=== PATIENT | male | born 1960 | race Caucasian/White ===

== ENCOUNTER → 2023-03-05 14:37 | Outpatient (CLI) | payer MEDICARE, OTHER, SELFPAY | PROVIDERS: PCP Nurse Practitioner Family; Visit Provider Internal Medicine | DX: G47.30 Sleep apnea, unspecified (principal); R06.83 Snoring; R06.00 Dyspnea, unspecified; I11.9 Hypertensive heart disease without heart failure | CPT/HCPCS: G0399 ==

== ENCOUNTER → 2023-03-12 10:22 | Outpatient (CLI) | payer MEDICARE, OTHER, SELFPAY ==
[2023-03-12 11:40] LABS: Anion Gap 12.2 mEq/L (5-15); Blood Urea Nitrogen 18 mg/dl (9-20); Calcium 9.5 mg/dl (8.4-10.2); Carbon Dioxide 30 mmol/L (22.0-30.0); Chloride 97 mmol/L (98-107); Estimated Glomerular Filt Rate 76 ml/min (>60); GFR (African American) 92 ML/MIN (>60); Glucose 123 mg/dl (74-100); Potassium 4.2 mmoL/L (3.5-5.1); Sodium 135 mmol/L (136-145)
== END ==
PROVIDERS: PCP Nurse Practitioner Family; Visit Provider Nurse Practitioner Family
DX: E78.5 Hyperlipidemia, unspecified (principal); I11.9 Hypertensive heart disease without heart failure; I27.21 Secondary pulmonary arterial hypertension; I73.9 Peripheral vascular disease, unspecified; R60.9 Edema, unspecified
CPT/HCPCS: 36415; 80048

== ENCOUNTER 2023-04-09 21:08 | Observation (INO) | payer MEDICARE, OTHER, SELFPAY ==
[2023-04-09 21:13] VITALS: BP 113/75; PULSE 57; RESP 16; TEMP 36.9; O2SAT 91; BMI 44.3
[2023-04-09 22:01] VITALS: BP 130/68; PULSE 64; RESP 20; O2SAT 95
--- NOTE | 2023-04-09 22:24 | XR_ITS ---
PROCEDURE INFORMATION: Exam: XR Chest Exam date and time: 04/09/2023 10:56 PM Age: 63 years old Clinical indication: Shortness of breath; Additional info: SOA TECHNIQUE: Imaging protocol: Radiologic exam of the chest. Views: 1 view. Total images: 2 COMPARISON: No relevant prior studies available. FINDINGS: Tubes, catheters and devices: EKG leads are present. Lungs: Mild bibasilar atelectasis versus infiltrate. No pulmonary vascular congestion or interstitial edema. Pleural spaces: Unremarkable. No pleural effusion. No pneumothorax. Heart/Mediastinum: Unremarkable. No cardiomegaly. No mediastinal widening or hilar enlargement. Bones/joints: Mild degenerative changes bilateral glenohumeral joints. IMPRESSION: Mild bibasilar atelectasis versus infiltrate.
[2023-04-09 22:31] VITALS: BP 125/57; PULSE 60; RESP 16; O2SAT 95
[2023-04-09 22:32] LABS: Basophils # 0.1 K/mm3 (0-0.2); Basophils % 0.5 % (0.1-2.0); Chloride 96 mmol/L (98-107); Eosinophils # 0.4 K/mm3 (0.0-0.4); Eosinophils % 3.6 % (0.1-12.0); Hematocrit 51.1 % (42.0-52.0); Hemoglobin 15.7 g/dL (14.1-18.0); Lymphocytes # 1.6 K/mm3 (0.7-4.5); Lymphocytes % 13.4 % (10-50); Mean Corpuscular HGB Conc 30.7 g/dL (31.8-35.4); Mean Corpuscular Hemoglobin 31.1 pg (27.0-31.2); Mean Corpuscular Volume 101.2 fl (80-94); Mean Platelet Volume 7.6 fl (7.4-10.4); Monocytes # 0.8 K/mm3 (0.1-1.0); Neutrophils # 8.8 K/mm3 (1.8-7.8); Neutrophils % 75.6 % (37.0-80.0); Platelet Count 234 K/mm3 (142-424); Red Blood Count 5.05 M/mm3 (4.60-6.20); Red Cell Distribution Width 13.6 % (11.5-17.5); Sodium 135 mmol/L (136-145); White Blood Count 11.7 K/mm3 (4.8-10.8)
[2023-04-09 22:33] LABS: Potassium 4.3 mmoL/L (3.5-5.1)
[2023-04-09 22:35] LABS: Alanine Aminotransferase 31 U/L (12-78); Albumin Level 3.7 g/dl (3.5-5.0); Albumin/Globulin Ratio 1.3 (1.1-1.8); Alkaline Phosphatase 53 U/L (38-126); Anion Gap 12.3 mEq/L (5-15); Aspartate Amino Transferase 29 U/L (17-59); Bilirubin,Total 0.2 mg/dl (0.2-1.3); Blood Urea Nitrogen 28 mg/dl (9-20); Calcium 9.3 mg/dl (8.4-10.2); Carbon Dioxide 31 mmol/L (22.0-30.0); Creatinine Clearance Estimated 64 mL/min (50-200); Estimated Glomerular Filt Rate 61 ml/min (>60); GFR (African American) 74 ML/MIN (>60); Globulin 2.8 g/dL (1.3-3.2); Glucose 152 mg/dl (74-100); Total Protein,Serum 6.5 g/dl (6.3-8.2)
[2023-04-09 22:51] LABS: Troponin I < 0.01 ng/ml (0.00-0.034)
[2023-04-09 23:01] VITALS: BP 121/55; PULSE 60; RESP 14; O2SAT 94
[2023-04-09 23:31] VITALS: BP 137/76; PULSE 61; RESP 16; O2SAT 95
--- NOTE | 2023-04-09 23:45 | ECG_ITS ---
APPROVED REPORT Exam: Resting ECG HR:57 bpm ECG Measurements Heart Rate 57 AXES HI 181 P 57 QRSd 101 QRS 57 QT 395 T 65 QTc 389 Conclusion SINUS BRADYCARDIA LOW QRS VOLTAGE IN PRECORDIAL LEADS [QRS DEFLECTION < 1.0 mV IN CHEST LEADS] NONSPECIFIC T-WAVE ABNORMALITY BORDERLINE ECG UNCONFIRMED REPORT Electronically signed by : Rishi English MD 04/11/2023 17:21:17
--- NOTE | 2023-04-09 23:47 | HMH.EDGENADL ---
Discharge Plan Disposition Patient Disposition: Admitted Condition: Fair Chief Complaint: Shortness of Breath/Dyspnea Clinical Impressions Clinical Impression: Peripheral edema, Shortness of breath Discharge ED Provider: Dennis Werner General Adult HPI General Chief complaint: Shortness of Breath/Dyspnea Stated complaint: sent by Elida, to be checked Time Seen by Provider: 04/09/23 23:37 Mode of Arrival: Wheelchair Source of Information: Patient and Parent(s) Limitations: No Limitations Description of Symptoms (Recalled from ER Triage Doc. by RN): patient to ED via wheelchair for SOA and +[address] Marrero contacted Dr. Rivera who would like patient to be admitted for cardiac symptoms. Patient denies chest pain at present. SOA constant x 3weeks. Patient is chronic smoker of 1/2 pack day. History of Present Illness HPI narrative: This 63-year-old male with a history of paranoid schizophrenia, coronary arterial sclerosis, DESMOND, obesity, emphysema presents to the emergency department with shortness of breath and worsening peripheral swelling. Patient states he takes Bumex daily. Patient and his family at bedside report that he was supposed to be admitted a couple weeks ago but decided not to be. His symptoms have worsened and he presented today for evaluation and admission per Dr. Marrero. Patient also has abdominal pain that he states is chronically intermittent. Related Data Home Medications Medication Instructions Recorded Confirmed albuterol sulfate 90 mcg/actuation 2 puff inhalation Q4H Emphysema 09/24/17 04/09/23 aerosol inhaler (Ventolin HFA) fluticasone 500 mcg-salmeterol 50 1 inh inhalation BID Emphysema 09/24/17 04/09/23 mcg/dose blistr powdr for inhalation (Advair Diskus) docusate sodium 100 mg capsule 100 mg PO DAILY stool softner 11/07/20 04/09/23 esomeprazole magnesium 40 mg 40 mg PO BID GERD 11/07/20 04/09/23 capsule,delayed release (Nexium) omega-3 acid ethyl esters 1 gram 2 cap PO BID Supplement 11/07/20 04/09/23 capsule risperidone microspheres 50 mg/2 50 mg IM Q14D antipsychotic 11/14/21 04/09/23 mL intramuscular susp,ext release (Risperdal Consta) melatonin 5 mg tablet 5 mg PO HS sleep 09/11/22 04/09/23 hydroxyzine pamoate 50 mg capsule 50 mg PO BID Anxiety 03/05/23 04/09/23 olanzapine 10 mg tablet 10 mg PO HS schizophrenia 03/05/23 04/09/23 benztropine 1 mg tablet 1 mg PO DAILY dystonia 03/14/23 04/09/23 divalproex 500 mg tablet,delayed 500 mg PO BID seizure 03/14/23 04/09/23 release prazosin 1 mg capsule 1 mg PO HS HTN 03/14/23 04/09/23 tamsulosin 0.4 mg capsule 0.4 mg PO HS BPH 03/14/23 04/09/23 trazodone 100 mg tablet 150 mg PO HS sleep 03/14/23 04/09/23 bumetanide 2 mg tablet 4 mg PO DAILY diuretic 04/09/23 04/09/23 carvedilol 6.25 mg tablet 6.25 mg PO BID HTN 04/09/23 04/09/23 clopidogrel 75 mg tablet 75 mg PO DAILY Blood Thinner 04/09/23 04/09/23 spironolactone 50 mg tablet 50 mg PO DAILY diuretic 04/09/23 04/09/23 Allergies Allergy/AdvReac Type Severity Reaction Status Date / Time gabapentin Allergy Severe unknown Verified 03/27/23 11:03 bupropion [From Wellbutrin] Allergy Mild Verified 03/27/23 11:03 duloxetine [From Cymbalta] Allergy Mild Verified 03/27/23 11:03 gemfibrozil [From Lopid] Allergy Mild Verified 03/27/23 11:03 quetiapine [From Seroquel] Allergy Mild Verified 03/27/23 11:03 [facility] Disclaimer: The information contained in this section may have been updated after the patient was seen, as this information can be updated by other users. Medical History Anxiety Coronary stent patent Dyspnea Edema Emphysema, unspecified Hyperlipemia DESMOND (obstructive sleep apnea) Schizophrenia Snoring Technically limited and inconclusive home sleep study due to a total recording time of only 0.72 hours is suggestive of severe DESMOND, AHI 61, RDI 68. Unfortunately there is insufficient study time to make a
[2023-04-10] VITALS (16 sets, daily range): BP systolic 118–147; BP diastolic 49–82; PULSE 48–92; RESP 14–22; TEMP 36.5–37; O2SAT 91–97; BMI 44.6
--- NOTE | 2023-04-10 | CT_ITS ---
PROCEDURE INFORMATION: Exam: CT Abdomen And Pelvis With Contrast Exam date and time: 04/10/2023 12:15 AM Age: 63 years old Clinical indication: Abdominal pain; Generalized; Additional info: Abd pain and diffuse tenderness TECHNIQUE: Imaging protocol: Computed tomography of the abdomen and pelvis with contrast. Total images: 366 Radiation optimization: All CT scans at this facility use at least one of these dose optimization techniques: automated exposure control; mA and/or kV adjustment per patient size (includes targeted exams where dose is matched to clinical indication); or iterative reconstruction. Contrast material: ISOVUE; Contrast volume: 75 ml; Contrast route: IV; REPORTING DATA: Count of CT and Cardiac NM exams in prior 12 months: This patient has received 0 known CTs and 0 known cardiac nuclear medicine studies in the 12 months prior to the current study. COMPARISON: CR XR CHEST PORTABLE 04/09/2023 10:56 PM FINDINGS: Lungs: Bilateral lower lobe atelectasis versus infiltrate including small volume consolidation in the right lower lobe. Pleural spaces: Trace bilateral pleural effusions. Heart: Normal heart size. Coronary arteries: Coronary artery calcifications. Liver: Hepatomegaly at 22 cm. Decreased liver attenuation from artifact, phase of contrast, or steatosis. No liver mass. Gallbladder and bile ducts: Status post cholecystectomy. No bile duct dilatation. Pancreas: Normal. No ductal dilation. Spleen: Normal. No splenomegaly. Adrenal glands: Minor right adrenal thickening. 2.4 cm indeterminate left adrenal nodule. Kidneys and ureters: 5.5 cm right renal peripelvic lesion with attenuation higher than simple fluid. Suspect complex cyst. Recommend follow-up nonemergent renal ultrasound. 12 mm enhancing or high density partially exophytic lower pole left renal cortical lesion. Additional 10 mm lower pole left renal cortical hypodensity. No nephrolithiasis or hydronephrosis. Stomach and bowel: Unremarkable stomach and duodenum. No ileus or bowel obstruction. Small bowel appears within normal limits. Minor diverticulosis of the distal ileum. Moderate diverticulosis of the descending and sigmoid colon without acute diverticulitis. Collapsed rectum. Appendix: The appendix is not visualized and may be surgically absent. Intraperitoneal space: Unremarkable. No free air. No significant fluid collection. Vasculature: Status post endovascular stent repair of the abdominal aorta. [place] abdominal aortic aneurysm measuring 4.2 cm. No contrast extravasation. Stent extending into the bilateral common iliac arteries. Pelvic phleboliths. Lymph nodes: Unremarkable. No enlarged lymph nodes. Urinary bladder: Unremarkable as visualized. Reproductive: Nonenlarged prostate. Bones/joints: No acute osseous abnormality. Mild degenerative changes thoracolumbar spine. No concerning bone lesions. Soft tissues: Fat containing left inguinal hernia. IMPRESSION: 1. Bibasilar atelectasis versus infiltrate, including small volume right lower lobe consolidations concerning for pneumonia. 2. Indeterminate bilateral renal cortical lesions, not consistent with simple cysts. Recommend follow-up nonemergent dedicated renal CT or MRI. 3. Status post endovascular stent repair of abdominal aortic aneurysm. Residual aneurysm measuring 4.2 cm. No contrast extravasation. 4. Indeterminate 2.4 cm left adrenal nodule. This can be further evaluated time of dedicated renal imaging. 5. Moderate colonic diverticulosis without acute diverticulitis. 6. Additional chronic and incidental findings. COMMENTS: Consistent with the [employer]'s Incidental Findings Committee white paper (J Am Amaya Radiol 2018): Any incidental renal lesion
[2023-04-10 00:07] LABS: NT Pro Brain Natriuretic Pep. 79.2 pg/mL (0-125)
--- NOTE | 2023-04-10 00:54 | EXP.HP ---
History of Present Illness *Admission Date: 04/10/23 *Reason for visit:: SOB *History of present illness: This 63-year-old male with a history of paranoid schizophrenia, coronary arterial sclerosis, AAA s/p repair, HTN, DESMOND, obesity, emphysema presents to the emergency department with shortness of breath and worsening peripheral swelling. Patient and his family at bedside stated that after followed up with cardiology recommendation for hospital evaluation was made, but decided not to be. His symptoms have worsened and he presented today for evaluation and admission per Dr. Marrero. Patient also has abdominal pain that he states is chronically intermittent. Admitted for further work up. [facility] Disclaimer: The information contained in this section may have been updated after the patient was seen, as this information can be updated by other users. Medical History Anxiety Coronary stent patent Dyspnea Edema Emphysema, unspecified Hyperlipemia DESMOND (obstructive sleep apnea) Schizophrenia Snoring Technically limited and inconclusive home sleep study due to a total recording time of only 0.72 hours is suggestive of severe DESMOND, AHI 61, RDI 68. Unfortunately there is insufficient study time to make an accurate diagnosis and further evaluation is needed. Surgical History History of cardiac cath History of heart artery stent Hx of appendectomy Family History Other Cancer Diabetes Heart attack Hypertension Stroke Social History (Updated 04/10/23 @ 02:13 by Daphne Nagel RN) Smoking Status: Current every day smoker tobacco type: cigarettes packs per day: 1 years smoked: 44 alcohol intake: never substance use type: denies use current occupational status: disabled Travel in the last 8 weeks: None household members: none housing: apartment Review of Systems Review of Systems Review of systems:: pertinent systems reviewed and negative unless documented below Constitutional Constitutional: Denies headache(s) and Denies weakness ENT Ears, Nose, Mouth, and Throat: Denies dizziness and Denies headache(s) *Musculoskeletal Musculoskeletal: Denies numbness and Denies tingling *Neurologic Neurologic: Denies dizziness, Denies headache(s), Denies numbness, Denies tingling and Denies weakness Meds Home Medications and Allergies Home Medications Medication Instructions Recorded Confirmed Type albuterol sulfate 90 mcg/actuation 2 puff inhalation Q4H Emphysema 09/24/17 04/10/23 History aerosol inhaler (Ventolin HFA) docusate sodium 100 mg capsule 200 mg PO HS stool softner 11/07/20 04/10/23 History esomeprazole magnesium 40 mg 40 mg PO BID GERD 11/07/20 04/10/23 History capsule,delayed release (Nexium) omega-3 acid ethyl esters 1 gram 2 cap PO BID Supplement 11/07/20 04/10/23 History capsule risperidone microspheres 50 mg/2 50 mg IM Q14D antipsychotic 11/14/21 04/10/23 History mL intramuscular susp,ext release (Risperdal Consta) melatonin 5 mg tablet 5 mg PO HS sleep 09/11/22 04/10/23 History hydroxyzine pamoate 50 mg capsule 50 mg PO BID Anxiety 03/05/23 04/10/23 History benztropine 1 mg tablet 1 mg PO DAILY dystonia 03/14/23 04/10/23 History divalproex 500 mg tablet,delayed 500 mg PO BID seizure 03/14/23 04/10/23 History release prazosin 1 mg capsule 1 mg PO HS HTN 03/14/23 04/10/23 History tamsulosin 0.4 mg capsule 0.4 mg PO HS BPH 03/14/23 04/10/23 History trazodone 100 mg tablet 300 mg PO HS sleep 03/14/23 04/10/23 History carvedilol 6.25 mg tablet 6.25 mg PO BID HTN 04/09/23 04/10/23 History clopidogrel 75 mg tablet 75 mg PO DAILY Blood Thinner 04/09/23 04/10/23 History spironolactone 50 mg tablet 50 mg PO DAILY diuretic 04/09/23 04/10/23 History New Prescriptions to Start Prescriptions: Allergies Allergy/AdvReac Typ
--- NOTE | 2023-04-10 01:27 | PC.NURSE ---
report called to SANDY Domínguez. Patient will be going to room 200 on 2nd floor
--- NOTE | 2023-04-10 01:37 | PC.NURSE ---
2nd fl staff here to transfer pt to Med/Surg. Also attempting to collect troponin
--- NOTE | 2023-04-10 01:46 | PC.NURSE ---
pt to floor via stretcher [id number]
[2023-04-10 02:05] LABS: Troponin I < 0.01 ng/ml (0.00-0.034)
[2023-04-10 04:55] LABS: Alanine Aminotransferase 26 U/L (12-78); Albumin Level 3.3 g/dl (3.5-5.0); Albumin/Globulin Ratio 1.3 (1.1-1.8); Alkaline Phosphatase 53 U/L (38-126); Anion Gap 12.1 mEq/L (5-15); Aspartate Amino Transferase 24 U/L (17-59); Bilirubin,Total 0.2 mg/dl (0.2-1.3); Blood Urea Nitrogen 24 mg/dl (9-20); Calcium 9.2 mg/dl (8.4-10.2); Carbon Dioxide 31 mmol/L (22.0-30.0); Chloride 97 mmol/L (98-107); Creatinine Clearance Estimated 70 mL/min (50-200); Estimated Glomerular Filt Rate 68 ml/min (>60); GFR (African American) 82 ML/MIN (>60); Globulin 2.6 g/dL (1.3-3.2); Glucose 110 mg/dl (74-100); Magnesium 1.6 mg/dl (1.6-2.3); Potassium 4.1 mmoL/L (3.5-5.1); Sodium 136 mmol/L (136-145); Total Protein,Serum 5.9 g/dl (6.3-8.2)
[2023-04-10 04:56] LABS: Basophils % 0.4 % (0.1-2.0); Eosinophils # 0.4 K/mm3 (0.0-0.4); Eosinophils % 4.2 % (0.1-12.0); Hematocrit 45.4 % (42.0-52.0); Lymphocytes # 1.9 K/mm3 (0.7-4.5); Lymphocytes % 22.4 % (10-50); Mean Corpuscular Hemoglobin 31.5 pg (27.0-31.2); Mean Corpuscular Volume 101.6 fl (80-94); Mean Platelet Volume 6.7 fl (7.4-10.4); Monocytes # 0.6 K/mm3 (0.1-1.0); Neutrophils # 5.6 K/mm3 (1.8-7.8); Platelet Count 207 K/mm3 (142-424); Red Blood Count 4.47 M/mm3 (4.60-6.20); Red Cell Distribution Width 13.4 % (11.5-17.5); White Blood Count 8.5 K/mm3 (4.8-10.8)
[2023-04-10 05:17] LABS: Troponin I < 0.01 ng/ml (0.00-0.034)
--- NOTE | 2023-04-10 06:02 | PC.NURSE ---
Arrived on floor at 01:46. Patient has been bradycardic since arrival to the floor. Has been NPO since arrival to floor. Patient does have startled reflex when awakened; may become combative until oriented. Patient has been had good urine output prior to dose of Lasix 80mg given this AM. Patient has rested in bed, mother is at bedside. Patient LCTA, denies SOA; is able to stand and pivots his feet when instructed but does not ambulate. Call light in reach and bed is at lowest level.
--- NOTE | 2023-04-10 06:50 | EXP.PN ---
Subjective *Date: 04/10/23 *Time: 10:22 Interval history: The patient is seen and examined today. He reports some improvement in his dyspnea overnight. Nursing staff report that he remains afebrile with stable vital signs and saturating appropriately on room air. His most recent echo from 2020 identifies an RVSP of 50 mmHg with an EF of 60%. He routinely follows with cardiology. His morning labs identify magnesium 1.6 with normal electrolytes and creatinine. His CBC identifies a normal white blood cell count stable hemoglobin normal platelets. Exam Data for Last 24 hours Vital signs and Labs for Last 24 Hours: Temp Pulse Resp BP Pulse Ox O2 Del Method 97.7 F 57 L 22 130/56 L 93 L Room Air 04/10/23 04:00 04/10/23 04:00 04/10/23 04:00 04/10/23 04:00 04/10/23 04:00 04/10/23 06:47 Laboratory Results - last 24 hr 04/09/23 21:26: WBC 11.7 H, RBC 5.05, Hgb 15.7, Hct 51.1, MCV 101.2 H, MCH 31.1, MCHC 30.7 L, RDW 13.6, Plt Count 234, MPV 7.6, Neut % (Auto) 75.6, Lymph % (Auto) 13.4, Garvin % (Auto) 7.0, Eos % (Auto) 3.6, Baso % (Auto) 0.5, Neut # (Auto) 8.8 H, Lymph # (Auto) 1.6, Garvin # (Auto) 0.8, Eos # (Auto) 0.4, Baso # (Auto) 0.1, Sodium 135 L, Potassium 4.3, Chloride 96 L, Carbon Dioxide 31 H, Anion Gap 12.3, BUN 28 H, Creatinine 1.20, Estimated Creat Clear 64, Estimated GFR 61, Est GFR ( Amer) 74, Glucose 152 H, Calcium 9.3, Total Bilirubin 0.2, AST 29, ALT 31, Alkaline Phosphatase 53, Troponin I < 0.01, NT-Pro-B Natriuret Pep 79.2, Total Protein 6.5, Albumin 3.7, Globulin 2.8, Albumin/Globulin Ratio 1.3 04/10/23 01:40: Troponin I < 0.01 04/10/23 04:30: WBC 8.5 D, RBC 4.47 L, Hgb 14.0 L D, Hct 45.4, MCV 101.6 H, MCH 31.5 H, MCHC 31.0 L, RDW 13.4, Plt Count 207, MPV 6.7 L, Neut % (Auto) 66.0, Lymph % (Auto) 22.4, Garvin % (Auto) 7.0, Eos % (Auto) 4.2, Baso % (Auto) 0.4, Neut # (Auto) 5.6, Lymph # (Auto) 1.9, Garvin # (Auto) 0.6, Eos # (Auto) 0.4, Baso # (Auto) 0.0, Sodium 136, Potassium 4.1, Chloride 97 L, Carbon Dioxide 31 H, Anion Gap 12.1, BUN 24 H, Creatinine 1.10, Estimated Creat Clear 70, Estimated GFR 68, Est GFR ( Amer) 82, Glucose 110 H D, Calcium 9.2, Magnesium 1.6, Total Bilirubin 0.2, AST 24, ALT 26, Alkaline Phosphatase 53, Troponin I < 0.01, Total Protein 5.9 L, Albumin 3.3 L D, Globulin 2.6, Albumin/Globulin Ratio 1.3 I & O for Last 24 hours: Intake & Output 04/07/23 04/08/23 04/09/23 04/10/23 23:59 23:59 23:59 23:59 Output Total 1675 / 1675 Balance -1675 / -1675 Weight 136.078 kg 136.8 kg Constitutional Constitutional: no acute distress, morbidly obese, chronically ill appearing and cooperative *Routine HEENT Exam Head: Present normocephalic Eye: Present EOMI and PERRL ENT: Present mucous membranes moist *Routine Respiratory Exam Respiratory: Present rhonchi, normal respiratory effort and symmetric chest movement *Routine Cardiovascular Exam Cardiovascular: Present RRR, Normal S1 and Normal S2 *Routine Abdominal Exam Abdominal: Present soft and normoactive bowel sounds; Absent tenderness *Routine Extremities Exam Extremities: Present edema, full ROM, pulses intact and normal capillary refill *Routine Skin Exam Skin: Present warm; Absent rash *Routine Neurological Exam Neurological: Present alert, oriented X3, moving all extremities, vision grossly intact, hearing grossly intact and normal speech; Absent sensory deficit or motor deficit Routine Psychiatric Exam Psychiatric: Present cooperative Assessment and Plan *Assessment and plan (1) Acute on chronic heart failure with preserved ejection fraction (HFpEF): Status: Acute Category: Medical Code(s): I50.33 - Acute on chronic diastolic (congestive) heart failure (2) DESMOND (obstructive sleep apnea): Status: Acute Category: Medical Code(s): G47.33 - Obstructive sleep apnea (adult) (pediatric) (3) Pulmonary hypertension: Status: Acute Category: Medical Code(s): I27.20 - Pulmon
--- NOTE | 2023-04-10 06:57 | CA_ITS ---
APPROVED REPORT EXAM: Comprehensive 2D, Doppler, and color-flow Echocardiogram Oil Boiler: ALESSANDRO Abreu, RVS Ht: 5 ft 8 in Wt: 300lbs BSA: 2.43 BP: 130/56 mmHg Indications: SOB, heart failure, CAD -coronary stent, DESMOND, Obesity, Smoker, schizophrenia Echo Enhancing Agent Comments: Extremely difficult exam due to patient intolerance to touch-screaming, hyperventillation, & body habitus. Best exam possible 2D Dimensions Aortic Root 3.26 cm M: 3.1 - 3.7 Left Atrium 3.16 cm M: 3.0 - 4.0 LVOT 2.00 cm (M/F) 1.5-2.5 M-Mode Dimensions RVDd 3.79 cm (0.9-2.6) LA Diam 4.11 cm (1.9-4.0) LVDd 4.64 cm (3.5-5.7) Ao Diam 3.82 cm (2.0-3.7) LVDs 3.34 cm (3.5-5.7) IVSd 1.20 cm (0.6-1.1) PWd 1.16 cm (0.6-1.1) EF (Teich) 54.30% EPSs 0.63 cm FS 28.00% EDV (Teich) 99.30 mL ESV (Teich) 45.40 mL LV Diastology E Decel Time 277.00 (160-240 msec) E/A Ratio 0.55 LAT E' 7.80 (<10 cm/sec) LAT A' 12.80 cm/s E/LAT E' Ratio 7.72 (>14) Aortic Valve LVOT Max 84.00 (70-110 cm/s) LVOT VTI 15.68 cm AoV Peak Abelino. 109.00 (50-130 cm/s) AO Peak GR. 4.70 mmHg AO Mean GR. 2.40 (<5 mmHg) AO VTI 20.37 (18-25 cm) JONATHAN (VTI) 2.42 (2.5-4.5 cm2) Mitral Valve MV A Velocity 109.00 (40-130 cm/s) E/A Ratio 0.55 MV Decel. Time 277.00 (160-240 ms) Pulmonary Valve PV Peak Velocity 89.00 (50-150 cm/s) [place] End VMAX 158.00 cm/s Tricuspid Valve TR P. Velocity 218.00 cm/s Left Ventricle The left ventricle is normal size. The left ventricular systolic function is normal. The left ventricular ejection fraction is within the normal range. There is increased LV wall thickness. There is normal LV segmental wall motion. LVEF is 55%. Right Ventricle The right ventricle is mildly dilated. The right ventricular systolic function is normal. There is increased RV wall thickness. Atria The left and right atria are not well visualized. Aortic Valve The aortic valve opens well. There is no aortic valvular stenosis. No aortic regurgitation is present. Mitral Valve The mitral valve is mildly thickened. No evidence of mitral valve stenosis. There is no mitral valve regurgitation noted. Tricuspid Valve The tricuspid valve leaflets are thin and pliable. Trace tricuspid regurgitation. RVSP is 12 mmHg + RA pressure. Pulmonic Valve The pulmonary valve is not well visualized. Great Vessels The aortic root is normal in size. The ascending aorta is normal in size. The IVC is not well visualized. Pericardium Trivial pericardial effusion. Other Information Study Quality: Technically Difficult. Technically limited study due to lung disease. Conclusion This was a technically difficult and technically limited study due to poor accoustic windows. Grossly, normal biventricular systolic function. Mildly dilated RV. No significant valvular stenosis or regurgitation. Trivial pericardial effusion. Electronically signed by : Zakiya Stern MD 04/10/2023 18:47:57
--- NOTE | 2023-04-10 08:17 | HMH.PHAINT1 ---
Pharmacy Intervention Comments: MEDICATION RECONCILIATION COMPLETED ON PATIENT USING EXTERNAL FILL FROM HOSPITAL AND LIST PROVIDED BY PATIENT'S MOTHER. -MADELINE WILSON, CHAZD
--- NOTE | 2023-04-10 14:26 | EXP.CARD.CON ---
History of Present Illness History of Present Illness Consult date: 04/10/23 Requesting physician: Koby Molina Consult reason: shortness of breath Chief complaint: SOA History of present illness: This is a 63-year-old white gentleman who presented to the emergency department complaints of shortness of breath and bilateral lower extremity edema. He has a history of paranoid schizophrenia, coronary artery disease, AAA status postrepair, hypertension, hyperlipidemia and obstructive sleep apnea. The patient states that he has been having progressively worsening shortness of breath and lower extremity edema. His shortness of breath was severe last night he decided to come to the emergency department. He denies any chest pain or pressure. He denies any fever, chills, nausea, vomiting, diarrhea. He does have associated PND and orthopnea. [facility] Disclaimer: The information contained in this section may have been updated after the patient was seen, as this information can be updated by other users. Medical History (Updated 04/10/23 @ 14:31 by Ariana Perez APRN) Acute on chronic heart failure with preserved ejection fraction (HFpEF) Anxiety Coronary artery disease Coronary stent patent Dyspnea Edema Emphysema, unspecified Hyperlipemia Morbid obesity DESMOND (obstructive sleep apnea) Peripheral edema Peripheral vascular disease Pulmonary hypertension Schizophrenia Snoring SOB (shortness of breath) on exertion Tobacco dependence Surgical History History of cardiac cath History of heart artery stent Hx of appendectomy Family History Other Cancer Diabetes Heart attack Hypertension Stroke Social History (Updated 04/10/23 @ 02:13 by Daphne Nagel RN) Smoking Status: Current every day smoker tobacco type: cigarettes packs per day: 1 years smoked: 44 alcohol intake: never substance use type: denies use current occupational status: disabled Travel in the last 8 weeks: None household members: none housing: apartment Review of Systems Review of Systems Review of systems:: pertinent systems reviewed and negative unless documented below Constitutional Constitutional: Reports system reviewed and no additional complaints, except as documented, Reports fatigue, Denies headache(s), Reports lethargy and Denies weakness Eyes Eyes: Reports system reviewed and no additional complaints, except as documented ENT Ears, Nose, Mouth, and Throat: Reports system reviewed and no additional complaints, except as documented, Denies dizziness and Denies headache(s) *Cardiovascular Cardiovascular: Reports system reviewed and no additional complaints, except as documented, Denies chest pain, Reports dyspnea, Reports dyspnea on exertion, Reports leg edema, Reports orthopnea and Reports pedal edema *Respiratory Respiratory: Reports system reviewed and no additional complaints, except as documented, Reports dyspnea and Reports dyspnea on exertion *Gastrointestinal Gastrointestinal: Reports system reviewed and no additional complaints, except as documented and Reports abdominal pain *Genitourinary Genitourinary: Reports system reviewed and no additional complaints, except as documented *Musculoskeletal Musculoskeletal: Reports system reviewed and no additional complaints, except as documented, Denies numbness and Denies tingling Integumentary/Breasts Skin/Breast: Reports system reviewed and no additional complaints, except as documented *Neurologic Neurologic: Denies dizziness, Denies headache(s), Denies numbness, Denies tingling and Denies weakness Psychiatric Psychiatric: Reports system reviewed and no additional complaints, except as documented Endocrine Endocrine: Reports system reviewed and no additional complaints, except as documented and Reports fatigue Hematologic/Lymphatic Hematologic/Lymphatic: Reports system reviewe
--- NOTE | 2023-04-10 16:20 | PC.NURSE ---
pt has rested in bed t/o shift. pt alert and oriented and cooperative with care. pt's mother has been at bedside. pt reports he is feeling better. LS cta at this time. pt has sinus nawaf. pt did receive Bumex this shift with good urine output. pt on 1800 ml fluid restriction cardiac diet. pt has been compliant with fluid restriction. call light w/i reach.
[2023-04-11] VITALS: BP 106/58; PULSE 52; PULSE 70; RESP 19; TEMP 36.9; O2SAT 91
[2023-04-11 04:00] VITALS: BP 130/65; PULSE 56; PULSE 60; RESP 20; TEMP 36.4; O2SAT 91; BMI 42.5
--- NOTE | 2023-04-11 05:33 | PC.NURSE ---
Patient has been able to rest tonight. Patient did sit up in the chair for a couple hours before bed and we transferred to the bedside commode. Did not have a BM. Still has the male purewick on for accurate I&Os. No other issues have been noted
[2023-04-11 06:04] VITALS: PULSE 44; PULSE 53; O2SAT 86
[2023-04-11 06:46] LABS: Basophils # 0.1 K/mm3 (0-0.2); Basophils % 0.6 % (0.1-2.0); Eosinophils # 0.5 K/mm3 (0.0-0.4); Hemoglobin 15.5 g/dL (14.1-18.0); Lymphocytes # 1.7 K/mm3 (0.7-4.5); Lymphocytes % 18.2 % (10-50); Mean Corpuscular HGB Conc 32.2 g/dL (31.8-35.4); Mean Corpuscular Hemoglobin 31.8 pg (27.0-31.2); Mean Corpuscular Volume 98.6 fl (80-94); Mean Platelet Volume 7.8 fl (7.4-10.4); Monocytes # 0.7 K/mm3 (0.1-1.0); Monocytes % 7.9 % (1.7-9.3); Neutrophils # 6.3 K/mm3 (1.8-7.8); Neutrophils % 68.3 % (37.0-80.0); Platelet Count 210 K/mm3 (142-424); Red Blood Count 4.86 M/mm3 (4.60-6.20); Red Cell Distribution Width 13.5 % (11.5-17.5); White Blood Count 9.3 K/mm3 (4.8-10.8)
[2023-04-11 06:53] LABS: Blood Urea Nitrogen 27 mg/dl (9-20); Calcium 9.2 mg/dl (8.4-10.2); Carbon Dioxide 33 mmol/L (22.0-30.0); Chloride 96 mmol/L (98-107); Creatinine Clearance Estimated 67 mL/min (50-200); Estimated Glomerular Filt Rate 68 ml/min (>60); GFR (African American) 82 ML/MIN (>60); Glucose 129 mg/dl (74-100); Magnesium 1.8 mg/dl (1.6-2.3); Sodium 136 mmol/L (136-145)
[2023-04-11 07:02] LABS: NT Pro Brain Natriuretic Pep. 20.1 pg/mL (0-125)
[2023-04-11 07:11] LABS: Procalcitonin 0.057 ng/mL (0.0-2.0)
[2023-04-11 07:15] LABS: Alanine Aminotransferase 24 U/L (12-78); Albumin Level 3.4 g/dl (3.5-5.0); Alkaline Phosphatase 59 U/L (38-126); Aspartate Amino Transferase 18 U/L (17-59); Bilirubin,Direct 0.1 mg/dl (0.0-0.4); Bilirubin,Indirect 0.2 mg/dL (0.0-0.9); Bilirubin,Total 0.3 mg/dl (0.2-1.3); Bilirubin,Unconjugated 0.2 mg/dL (0.0-1.1); Chol/HDL Ratio 8.6 (1-3.5); Cholesterol 240 mg/dl (140-200); HDL Cholesterol 28 mg/dl (40-60); Total Protein,Serum 5.8 g/dl (6.3-8.2); Triglycerides 366 mg/dl (30-150); VLDL Cholesterol 73 mg/dL (0-40)
[2023-04-11 07:27] VITALS: O2SAT 92
--- NOTE | 2023-04-11 07:32 | EXP.DC.SUM ---
General Admission date:: 04/10/23 Discharge date: 04/11/23 HPI HPI HPI: This 63-year-old male with a history of paranoid schizophrenia, coronary arterial sclerosis, AAA s/p repair, HTN, DESMOND, obesity, emphysema presents to the emergency department with shortness of breath and worsening peripheral swelling. Patient and his family at bedside stated that after followed up with cardiology recommendation for hospital evaluation was made, but decided not to be. His symptoms have worsened and he presented today for evaluation and admission per Dr. Marrero. Patient also has abdominal pain that he states is chronically intermittent. Admitted for further work up. 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 He presented to the ED for evaluation of his dyspnea. Problems addressed as follows: Acute on chronic heart failure with preserved ejection fraction Telemetry monitoring Echocardiogram official report pending at discharge Loop diuretic therapy Beta-carol ann therapy ARB therapy Aldosterone antagonist therapy SGLT2 inhibitor therapy Accurate I's and O's Daily weights Trending electrolytes, magnesium and creatinine with stable results Coronary artery disease Peripheral vascular disease Aortic aneurysm with endograft and iliac stents Previous cardiac cath with stent deployment Antiplatelet therapy P2 Y12 inhibitor therapy Statin therapy Beta-carol ann therapy ARB therapy BMI 45/OHS/DESMOND/COPD overlap Pulmonary hypertension Pulse oximetry monitoring Oxygen therapy to maintain appropriate oxygen saturations Currently oxygenating appropriately on room air NIPPV therapy Irene/Idalia inhalation therapy ICS therapy Nutrition education Calorie appropriate diet Complicates all aspects of care Outpatient follow-up for sleep study and current strategies for pulmonary hypertension Right lower lobe pneumonia Chest x-ray reviewed CT reviewed with RLL Pulse oximetry monitoring Currently oxygenating appropriately on room air Inhalation therapy IV Rocephin completed inpatient course P.o. doxycycline Schizophrenia Routine nursing interaction Antipsychotic therapy ECG with QTc 389 MS Tobacco dependence Tobacco cessation education Nicotine replacement therapy The patient identified improvement and inquired about discharge home. Nursing staff identified some bradycardia during his apneic episodes at night. He was counseled to follow through with his planned sleep study and CPAP therapy. We advised to reduce his home beta-carol ann dose by 50%. Cardiology evaluated the patient and plans to continue outpatient follow-up. He will be discharged home to continue care with his outpatient providers. He will be discharged on a 7-day course of doxycycline. I spent 35 minutes in [id number] time with the patient and nursing staff concerning the discharge process. We discussed the admitting diagnoses and hospital course. We discussed identified improvement and the patient's desire to be discharged. We reviewed inpatient studies and imaging. The patient voiced understanding on the importance of follow-up with his primary care provider and specialist(s). The patient plans to be compliant with the medication regimen prescribed and follow-up appointments. He understands that he can return to the emergency department with any sudden changes or concerns. Exam Data for Last 24 hours Vital signs and Labs for Last 24 Hours: Temp Pulse Resp BP Pulse Ox O2 Del Method 97.6 F 44 L 20 130/65 92 L Room Air 04/11/23 04:00 04/11/23 06:04 04/11/23 04:00 04/11/23 04:00 04/11/23 07:27 04/11/23 07:27 Laboratory Results - last 24 hr 04/11/23 06:33: WBC 9.3, RBC 4.86, Hgb 15.5, Hct 48.0, MCV 98.6 H, MCH 31.8 H, MCHC 32.2, RDW 13.5, Plt Count 210, MPV 7.8, Neut % (Auto) 68.3, Lymph % (Auto) 18.2, [place] % (Auto) 7.9, Eos % (Auto) 5.0, Baso % (Auto)
[2023-04-11 08:00] VITALS: BP 103/70; PULSE 60; RESP 24; TEMP 36.5; O2SAT 91
--- NOTE | 2023-04-12 13:37 | CARE MANAGER ---
Called and spoke with patient and his mother to discuss recent discharge. Patient is doing well. Patient aware of scheduled f/u appts.
== END 2023-04-11 08:45 | disposition home or self-care (01) ==
LOC: ER 23:45 → 2ND 04-10 01:59
PROVIDERS: Emergency Medicine; Nurse Practitioner Family; Admitting Provider Family Medicine; Emergency Provider Emergency Medicine; PCP Nurse Practitioner Family; Visit Provider Family Medicine
DX: R06.00 Dyspnea, unspecified (principal); R06.02 Shortness of breath; J18.1 Lobar pneumonia, unspecified organism; R60.9 Edema, unspecified; I27.21 Secondary pulmonary arterial hypertension; E78.2 Mixed hyperlipidemia; F20.9 Schizophrenia, unspecified; G47.33 Obstructive sleep apnea (adult) (pediatric); F41.9 Anxiety disorder, unspecified; I50.33 Acute on chronic diastolic (congestive) heart failure; Z79.899 Other long term (current) drug therapy; I27.20 Pulmonary hypertension, unspecified; I25.10 Atherosclerotic heart disease of native coronary artery without angina pectoris; I73.9 Peripheral vascular disease, unspecified; F17.200 Nicotine dependence, unspecified, uncomplicated; I77.9 Disorder of arteries and arterioles, unspecified; I71.40 Abdominal aortic aneurysm, without rupture, unspecified; I65.23 Occlusion and stenosis of bilateral carotid arteries; E66.01 Morbid (severe) obesity due to excess calories; Z68.41 Body mass index [BMI] 40.0-44.9, adult
CPT/HCPCS: 36415; 71045; 74177; 80048; 80053; 80061; 80076; 83735; 83880; 84145; 84484; 85025; 93005; 93306; 94640; 99285; G0378; J0696; J3475; Q9967

== ENCOUNTER 2023-05-27 13:54 | Inpatient (IN) | payer MEDICARE, MEDICAID, SELFPAY ==
[2023-05-27] VITALS (17 sets, daily range): BP systolic 86–183; BP diastolic 45–118; PULSE 50–108; RESP 16–29; TEMP 36.9; O2SAT 90–98; BMI 47.0; BMI 44.1
--- NOTE | 2023-05-27 12:16 | IR_ITS ---
APPROVED REPORT Patient Location: Outpatient Office Services Associate: IAN Lewis RT (R) PROCEDURES Right heart catheterization Left heart catheterization Left ventriculogram Selective coronary angiogram Drug-eluting stent deployment to the proximal LAD INDICATION Unstable angina, Biventricular congestive heart failure, Pulmonary hypertension, Informed consent was obtained prior to the procedure. COMPLICATIONS None Estimated Blood Loss: Less than 10 ML TECHNIQUE One percent lidocaine was used to anesthetize the right anterior aspect of the right wrist. The right radial artery was accessed via the Seldinger technique and a 6 [place]an hydrophilic sheath was placed in the right radial artery. Following this an arterial cocktail was administered using 5000U heparin, 2.5 mg verapamil, 1mg Lidocaine and 800mcg nitroglycerin into the right radial sheath. 1% lidocaine used anesthetize the right groin the right femoral vein was accessed via the Salinger technique and a 7 [place]an sheath was placed in the right femoral vein. A papa catheter was used to perform left heart catheterization left ventriculogram and selective coronary angiography while a [place]-Angela catheter was used to perform right heart catheterization. Saturations were obtained in the pulmonary artery and right atrium. At the end of the procedure the arterial sheath was removed good hemostasis was achieved using Traclet band. Patient was transferred to the postop holding area in stable condition for venous sheath removal. ANGIOGRAPHIC RESULTS The left main artery Normal The left anterior descending artery Has a proximal 30% stenosis followed by a focal concentric proximal 70% stenosis. The remaining vessel has mid vessel 20 to 30% stenoses The circumflex artery Nondominant large and has a proximal to mid vessel 30% tandem stenoses The right coronary artery Is a dominant vessel and has a stent in the proximal segment which is widely patent with eccentric 30% in-stent restenosis followed by an additional mid vessel 40% stenosis immediately distal to the stent followed by 10% luminal regularities The POWRES ventriculogram reveals Hyperdynamic at 70 to 75% The left ventricular end-diastolic pressure 25 mmHg Right atrial pressure 17 mmHg Pulmonary artery pressure 50/35 mmHg Pulmonary artery occlusion pressure 24 mmHg Hemoglobin 14.5 Right atrial saturation 73% Pulmonary artery saturation 71% Aortic saturation 91% Cardiac output 7.8 L Cardiac index 3.2 IMPRESSION Severe proximal LAD disease as described above Moderate pulmonary hypertension Decompensated biventricular congestive heart failure as described above Hyperdynamic ventricle PLAN 1. Dual antiplatelet therapy 2. Admit patient to the hospital for 48 to 72 hours of IV diuresis. Would recommend continuing with IV diuretics until there is an increase in the creatinine level thereby suggesting a prerenal versus euvolemic state 3. Cardiac rehabilitation 4. Avoidance of tobacco products 5. Risk factor modification 6. LDL less than 55 to achieve that high intensity statin Electronically signed by : Torsten Marrero MD 05/27/2023 13:56:57
[2023-05-27 13:03] LABS: Basophils % 0.3 % (0.1-2.0); Eosinophils # 0.7 K/mm3 (0.0-0.4); Hematocrit 44.4 % (42.0-52.0); Hemoglobin 14.5 g/dL (14.1-18.0); Lymphocytes # 1.8 K/mm3 (0.7-4.5); Lymphocytes % 20.5 % (10-50); Mean Corpuscular HGB Conc 32.7 g/dL (31.8-35.4); Mean Corpuscular Hemoglobin 32.9 pg (27.0-31.2); Mean Corpuscular Volume 100.6 fl (80-94); Mean Platelet Volume 8.1 fl (7.4-10.4); Monocytes # 0.5 K/mm3 (0.1-1.0); Monocytes % 5.7 % (1.7-9.3); Neutrophils # 5.6 K/mm3 (1.8-7.8); Neutrophils % 65.6 % (37.0-80.0); Platelet Count 191 K/mm3 (142-424); Red Blood Count 4.41 M/mm3 (4.60-6.20); Red Cell Distribution Width 13.9 % (11.5-17.5); White Blood Count 8.6 K/mm3 (4.8-10.8)
[2023-05-27 13:08] LABS: Anion Gap 10.2 mEq/L (5-15); Blood Urea Nitrogen 18 mg/dl (9-20); Calcium 9.4 mg/dl (8.4-10.2); Carbon Dioxide 31 mmol/L (22.0-30.0); Chloride 98 mmol/L (98-107); Estimated Glomerular Filt Rate 86 ml/min (>60); GFR (African American) 103 ML/MIN (>60); Glucose 141 mg/dl (74-100); Potassium 4.2 mmoL/L (3.5-5.1); Sodium 135 mmol/L (136-145)
[2023-05-27 14:24] LABS: CATHL Activated Clotting Time 370 SEC (74-125); CATHL Venous O2 SAT 73.5 % (75-80)
--- NOTE | 2023-05-27 14:35 | EXP.HP ---
History of Present Illness *Admission Date: 05/27/23 *Reason for visit:: Dyspnea, weight gain *History of present illness: Mr. Youssef is a 63-year-old male with history of morbid obesity, schizophrenia on stable antipsychotic regimen, severe sleep apnea, CAD, heart failure with preserved ejection fraction, hyperlipidemia, anxiety, and AAA. He presented to cardiology clinic as an outpatient for routine follow-up due to worsening shortness of breath and weight gain over the past several weeks to months. He lives with his mother who is his POA. States that he has been having increased swelling in his legs and throughout his body. Had to use a wheelchair to get in today. Weight is up 6 pounds from last visit. In cardiology clinic because of his dyspnea and weight gain, decision made to take patient for left and right heart cath. During procedure, patient noted to have elevated PA pressures, severe volume overload, and a proximal LAD stenosis necessitating stenting. Cardiology requested admission for further treatment and aggressive diuresis. Patient admitted to stepdown unit for care on Bumex drip. On evaluation, patient's blood pressure is softer however map is between 60 and 65. On 2 L nasal cannula oxygen at this time for sats in the low 90s. Heart rate within normal range. Alert and interactive. At baseline mentation. Appears in mild distress. Mother at bedside. Discussed CODE STATUS, patient is DNR. Requests aggressive treatment for condition but no aggressive measures if heart stops or he stops breathing. Currently on 1 mg/h of Bumex, is only had about 100 cc out so far in the first hour. Patient complaining of some pain in his right neck, appears to have some swelling at site of right IJ access. No significant bleeding in groin. Right trace slit in place on right radial artery. [facility] Disclaimer: The information contained in this section may have been updated after the patient was seen, as this information can be updated by other users. Medical History Acute on chronic heart failure with preserved ejection fraction (HFpEF) Anxiety Coronary artery disease Coronary stent patent Dyspnea Edema Emphysema, unspecified Hyperlipemia Morbid obesity DESMOND (obstructive sleep apnea) Peripheral edema Peripheral vascular disease Pulmonary hypertension Schizophrenia Snoring SOB (shortness of breath) on exertion Tobacco dependence Surgical History History of cardiac cath History of heart artery stent Hx of appendectomy Family History Diabetes Heart attack Cancer Hypertension Stroke Social History Smoking Status: Current every day smoker tobacco type: cigarettes packs per day: 1 years smoked: 44 alcohol intake: never substance use type: denies use current occupational status: disabled Travel in the last 8 weeks: None household members: none housing: apartment Review of Systems Review of Systems Review of systems (narrative): 14 point review of systems performed, pertinent positives and negatives as per HPI Meds Home Medications and Allergies Home Medications Medication Instructions Recorded Confirmed Type albuterol sulfate 90 mcg/actuation 2 puff inhalation Q4HP PRN 09/24/17 05/27/23 History aerosol inhaler (Ventolin HFA) Shortness Of Breath docusate sodium 100 mg capsule 100 mg PO BID Constipation 11/07/20 05/27/23 History esomeprazole magnesium 40 mg 40 mg PO BID Acid Reflux 11/07/20 05/27/23 History capsule,delayed release (Nexium) omega-3 acid ethyl esters 1 gram 2 g PO BID Supplement 11/07/20 05/27/23 History capsule risperidone microspheres 50 mg/2 50 mg IM Q14D Mood 11/14/21 05/27/23 History mL intramuscular susp,ext release (Risperdal Consta) melatonin 5 mg tablet 10 mg P
--- NOTE | 2023-05-27 14:36 | HMH.PHAINT1 ---
Pharmacy Intervention Comments: MEDICATION RECONCILIATION COMPLETED ON PATIENT USING EXTERNAL FILL HISTORY FROM PHARMACY AND LIST FROM CARDIOLOGY OFFICE. -MADELINE WILSON, CHAZD
--- NOTE | 2023-05-27 14:50 | SUR.PHASEII ---
1425 RIGHT FEMORAL VENOUS SHEATH PULLED, PRESSURE HELD FOR 15 MIN. NO HEMATOMA/BRUISING NOTED AT THIS TIME. DRESSING CDI
--- NOTE | 2023-05-27 15:27 | SUR.PHASEII ---
1515 NOTED BLEEDING AT RIGHT IJ SIGHT. PRESSURE HELD, HEMOSTASIS ACHIEVED, DR CROWELL NOTIFIED. NO NEW ORDERS.
--- NOTE | 2023-05-27 15:31 | PC.NURSE ---
arrived by chriser from [employer]
--- NOTE | 2023-05-27 15:38 | PC.NURSE ---
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
--- NOTE | 2023-05-27 16:05 | PC.NURSE ---
notified MD Marrero of pt's possible hematoma and drainage at right IJ site, hypotension, bradycardia, pallor, and overall malaise; MD stated would call this RN back, but MD Tran at bedside called MD Marrero and updated as well, cxr obtained, called radiology for ultrasound of neck, radiology to get back to MD Tran about ultra sound, pt's POA at bedside stated pt wants to be DNR, DNR signed, new IV started 20G in left AC, 16 FR buenrostro catheter inserted per verbal order from MD Tran for bumex drip
[2023-05-27 16:17] LABS: POC Glucose,Bedside 231 (70-110)
--- NOTE | 2023-05-27 16:26 | US_ITS ---
PROCEDURE INFORMATION: Exam: US Soft Tissue Head and Neck, Soft Tissue Exam date and time: 05/27/2023 5:20 PM Age: 63 years old Clinical indication: Prior surgery; Surgery date: Post-operative (0-2 days); Surgery type: Patient had heart cath today; Patient HX: Patient has swelling over area of jugular where the heart cath was started -- ultrasound was done over bandage due to amount of bleeding patient had; Additional info: Right neck swelling TECHNIQUE: Imaging protocol: Real-time ultrasound scan of the head and neck with image documentation. Exam focused on the soft tissue in the region of clinical concern. COMPARISON: XA CL RIGHT AND LEFT HEART 05/27/2023 12:50 PM FINDINGS: Non-specific edema in the region of clinical concern. No discrete fluid collection or mass is visualized. IMPRESSION: 1. No discrete fluid collection or hematoma is visualized. 2. Nonspecific edema in the region of clinical concern.
--- NOTE | 2023-05-27 16:26 | XR_ITS ---
PROCEDURE INFORMATION: Exam: XR Chest Exam date and time: 05/27/2023 4:23 PM Age: 63 years old Clinical indication: Dyspnea; Prior surgery; Surgery date: Post-operative (0-2 days); Surgery type: Cardiac cath today; Additional info: Dyspnea post cardiac cath procedure today. TECHNIQUE: Imaging protocol: Radiologic exam of the chest. Views: 1 view. COMPARISON: CR XR CHEST PORTABLE 04/09/2023 10:56 PM FINDINGS: Lungs: Decreased lung volumes. Mild left basilar atelectasis and/or infiltrate. Pleural spaces: Unremarkable. No pleural effusion. No pneumothorax. Heart/Mediastinum: Stable cardiac silhouette. Bones/joints: Osteopenia. Degenerative change involving the shoulders and spine. IMPRESSION: Mild left basilar atelectasis and/or infiltrate.
[2023-05-27 17:48] LABS: Hematocrit 35.8 % (42.0-52.0)
[2023-05-27 17:57] LABS: Hemoglobin 12.2 g/dL (14.1-18.0)
--- NOTE | 2023-05-27 18:15 | PC.NURSE ---
pt not putting out much urine on the 1mg/hr of bumex, MD Tran stated okay to increase bumex drip to 2mg/hr, [facility] to ensure correct dose as pump formulary does not have bumex in it, instructed by [facility] to increase rate of drip to 20mL/hr=2mg/hr, drip increased to 20mL/hr
[2023-05-28] VITALS (15 sets, daily range): BP systolic 107–156; BP diastolic 62–92; PULSE 52–105; RESP 17–30; TEMP 36.6–37.1; O2SAT 90–99; BMI 44.3
[2023-05-28 07:32] LABS: Basophils % 0.1 % (0.1-2.0); Eosinophils % 0.3 % (0.1-12.0); Hematocrit 34.5 % (42.0-52.0); Hemoglobin 11.7 g/dL (14.1-18.0); Lymphocytes # 1.3 K/mm3 (0.7-4.5); Lymphocytes % 9.5 % (10-50); Mean Corpuscular HGB Conc 33.9 g/dL (31.8-35.4); Mean Corpuscular Hemoglobin 33.7 pg (27.0-31.2); Mean Corpuscular Volume 99.4 fl (80-94); Mean Platelet Volume 8.3 fl (7.4-10.4); Monocytes # 0.9 K/mm3 (0.1-1.0); Monocytes % 6.5 % (1.7-9.3); Neutrophils # 11.6 K/mm3 (1.8-7.8); Neutrophils % 83.6 % (37.0-80.0); Platelet Count 216 K/mm3 (142-424); Red Blood Count 3.47 M/mm3 (4.60-6.20); Red Cell Distribution Width 14.1 % (11.5-17.5); White Blood Count 13.9 K/mm3 (4.8-10.8)
[2023-05-28 07:38] LABS: Alanine Aminotransferase 27 U/L (12-78); Albumin Level 3.4 g/dl (3.5-5.0); Albumin/Globulin Ratio 1.5 (1.1-1.8); Alkaline Phosphatase 49 U/L (38-126); Anion Gap 13.4 mEq/L (5-15); Aspartate Amino Transferase 23 U/L (17-59); Bilirubin,Total 0.2 mg/dl (0.2-1.3); Blood Urea Nitrogen 22 mg/dl (9-20); Calcium 8.7 mg/dl (8.4-10.2); Carbon Dioxide 30 mmol/L (22.0-30.0); Chloride 96 mmol/L (98-107); Creatinine Clearance Estimated 62 mL/min (50-200); Estimated Glomerular Filt Rate 61 ml/min (>60); GFR (African American) 74 ML/MIN (>60); Globulin 2.3 g/dL (1.3-3.2); Glucose 146 mg/dl (74-100); Magnesium 1.3 mg/dl (1.6-2.3); Potassium 3.4 mmoL/L (3.5-5.1); Sodium 136 mmol/L (136-145); Total Protein,Serum 5.7 g/dl (6.3-8.2)
--- NOTE | 2023-05-28 08:45 | CA_ITS ---
APPROVED REPORT EXAM: Limited 2D Echocardiogram Combatant Swimmer: Nelia Patel RCS, RVS Ht: 5 ft 8 in Wt: 299lbs BSA: 2.42 BP: 112/79 mmHg Indications: CAD s/p cath 05/27/2023 with LAD stents, Right Heart Failure, COPD, Obesity, schizophrenia Echo Enhancing Agent Comments: Extremely limited Imaging due to patient factors & intolerance to exam LV Diastology E Decel Time 230.00 (160-240 msec) E/A Ratio 0.65 MED E' 6.80 (< 7 cm/sec) MED A' 16.90 cm/s E'/MED E' Ratio 9.26 (>14) LAT E' 4.80 (<10 cm/sec) LAT A' 10.60 cm/s E/LAT E' Ratio 13.13 (>14) Mitral Valve MV E Max Abelino. 63.00 (40-130 cm/s) MV A Velocity 98.00 (40-130 cm/s) E/A Ratio 0.65 MV Decel. Time 230.00 (160-240 ms) MV PHT 67.00 ms Left Ventricle The left ventricle is normal size. The left ventricular systolic function is normal. The left ventricular ejection fraction is within the normal range. There is increased LV wall thickness. The regional wall motion cannot be analyzed due to technically difficult study. Diastolic function is indeterminate. LVEF is 65%. Right Ventricle Right ventricle is mildly dilated. The right ventricular systolic function is normal. Atria The left atrium size is normal. The right atrium size is normal. Aortic Valve The aortic valve leaflets are not well visualized. Mitral Valve The mitral valve leaflets are not well visualized. Tricuspid Valve The tricuspid valve leaflets are not well visualized. Pulmonic Valve The pulmonic valve leaflets are not well visualized. Great Vessels The aortic root is not well visualized. The IVC is not well visualized. Pericardium Trivial anterior pericardial effusion. Other Information Study Quality: Technically Difficult. Technically limited study due to body habitus. Conclusion Technically difficult and limited study due to poor accoustic windows and body habitus. Normal biventricular systolic function. Mild RV dilation. The valves are not well visualized. Trivial, anterior pericardial effusion. Electronically signed by : Zakiya Stern MD 06/02/2023 22:04:55
--- NOTE | 2023-05-28 11:22 | EXP.CARD.CON ---
History of Present Illness History of Present Illness Consult date: 05/28/23 Requesting physician: Riki Tran Consult reason: congestive heart failure Chief complaint: volume overload, s/p stenting History of present illness: 63-year-old white male with past medical history of obesity, schizophrenia, severe sleep apnea, coronary artery disease, heart failure preserved ejection fraction, hyperlipidemia, anxiety, AAA was admitted to the hospital for volume overload after outpatient left heart catheterization. Patient was in cardiology clinic yesterday complaining of increased shortness of breath and weight gain. Patient was taken to [facility] from cardiology clinic and was found to have severe proximal stenosis in LAD requiring stenting and moderate pulmonary hypertension. Patient was admitted to hospital for further evaluation and diuretics for volume overload. Patient was started on Bumex drip and has diuresed over 3 L and is feeling good this morning reporting shortness of air and lower extremity edema is improving. Labs remained stable. [facility] Disclaimer: The information contained in this section may have been updated after the patient was seen, as this information can be updated by other users. Medical History Acute on chronic heart failure with preserved ejection fraction (HFpEF) Anxiety Coronary artery disease Coronary stent patent Dyspnea Edema Emphysema, unspecified Hyperlipemia Morbid obesity DESMOND (obstructive sleep apnea) Peripheral edema Peripheral vascular disease Pulmonary hypertension Schizophrenia Snoring SOB (shortness of breath) on exertion Tobacco dependence Surgical History History of cardiac cath History of heart artery stent Hx of appendectomy Family History Diabetes Heart attack Cancer Hypertension Stroke Social History (Updated 05/27/23 @ 17:19 by Apolonia Coto RN) Smoking Status: Current every day smoker tobacco type: cigarettes packs per day: 1 years smoked: 44 alcohol intake: never substance use type: denies use current occupational status: disabled Travel in the last 8 weeks: None household members: none housing: apartment Review of Systems Review of Systems Review of systems:: pertinent systems reviewed and negative unless documented below *Cardiovascular Cardiovascular: Reports dyspnea Comments: Lower extremity edema *Respiratory Respiratory: Reports dyspnea Exam Data for Last 24 hours Vital signs and Labs for Last 24 Hours: Temp Pulse Resp BP Pulse Ox O2 Del Method O2 Flow Rate 97.9 F 93 H 27 H 137/92 H 92 L Nasal Cannula 3 05/28/23 07:32 05/28/23 10:00 05/28/23 10:00 05/28/23 10:00 05/28/23 10:00 05/28/23 10:00 05/28/23 10:00 Laboratory Results - last 24 hr 05/27/23 12:30: WBC 8.6, RBC 4.41 L, Hgb 14.5, Hct 44.4, MCV 100.6 H, MCH 32.9 H, MCHC 32.7, RDW 13.9, Plt Count 191, MPV 8.1, Neut % (Auto) 65.6, Lymph % (Auto) 20.5, [place] % (Auto) 5.7, Eos % (Auto) 8.0, Baso % (Auto) 0.3, Neut # (Auto) 5.6, Lymph # (Auto) 1.8, [place] # (Auto) 0.5, Eos # (Auto) 0.7 H, Baso # (Auto) 0.0, Sodium 135 L, Potassium 4.2, Chloride 98, Carbon Dioxide 31 H, Anion Gap 10.2, BUN 18, Creatinine 0.90, Estimated GFR 86, Est GFR ( Amer) 103, Glucose 141 H, Calcium 9.4 05/27/23 14:27: Activated Clotting Time 370 H*, ABG O2 Sat (Measured) 71.0 L, POC VBG O2 Sat (Liliya) 73.5 L 05/27/23 16:07: POC Glucose 231 H 05/27/23 16:55: Hgb 12.2 L D, Hct 35.8 L 05/28/23 06:23: WBC 13.9 H D, RBC 3.47 L, Hgb 11.7 L, Hct 34.5 L, MCV 99.4 H, MCH 33.7 H, MCHC 33.9, RDW 14.1, Plt Count 216, MPV 8.3, Neut % (Auto) 83.6 H, Lymph % (Auto) 9.5 L, [place] % (Auto) 6.5, Eos % (Auto) 0.3, Baso % (Auto) 0.1, Neut # (Auto) 11.6 H, Lymph # (Auto) 1.3, [place] # (Auto) 0.9, Eos # (Auto) 0.0, Baso # (Auto) 0.0, Sodium 136, Potassium 3.4 L, Chloride 96 L,
--- NOTE | 2023-05-28 14:24 | EXP.PN ---
Subjective *Date: 05/28/23 *Time: 14:24 Interval history: Patient seen and evaluated at the bedside. Patient denied chest pain nausea vomiting diarrhea constipation dysuria fevers chills. shortness of breath is improving. Exam Data for Last 24 hours Vital signs and Labs for Last 24 Hours: Temp Pulse Resp BP Pulse Ox O2 Del Method O2 Flow Rate 98.6 F 94 H 26 H 148/81 H 91 L Nasal Cannula 3 05/28/23 11:30 05/28/23 11:00 05/28/23 11:00 05/28/23 11:00 05/28/23 11:00 05/28/23 11:00 05/28/23 11:00 Laboratory Results - last 24 hr 05/27/23 14:27: Activated Clotting Time 370 H*, ABG O2 Sat (Measured) 71.0 L, POC VBG O2 Sat (Liliya) 73.5 L 05/27/23 16:07: POC Glucose 231 H 05/27/23 16:55: Hgb 12.2 L D, Hct 35.8 L 05/28/23 06:23: WBC 13.9 H D, RBC 3.47 L, Hgb 11.7 L, Hct 34.5 L, MCV 99.4 H, MCH 33.7 H, MCHC 33.9, RDW 14.1, Plt Count 216, MPV 8.3, Neut % (Auto) 83.6 H, Lymph % (Auto) 9.5 L, [place] % (Auto) 6.5, Eos % (Auto) 0.3, Baso % (Auto) 0.1, Neut # (Auto) 11.6 H, Lymph # (Auto) 1.3, [place] # (Auto) 0.9, Eos # (Auto) 0.0, Baso # (Auto) 0.0, Sodium 136, Potassium 3.4 L, Chloride 96 L, Carbon Dioxide 30, Anion Gap 13.4, BUN 22 H, Creatinine 1.20 D, Estimated Creat Clear 62, Estimated GFR 61, Est GFR ( Amer) 74 D, Glucose 146 H, Calcium 8.7, Magnesium 1.3 L, Total Bilirubin 0.2, AST 23, ALT 27, Alkaline Phosphatase 49, Total Protein 5.7 L, Albumin 3.4 L, Globulin 2.3, Albumin/Globulin Ratio 1.5 I & O for Last 24 hours: Intake & Output 05/25/23 05/26/23 05/27/23 05/28/23 23:59 23:59 23:59 23:59 Intake Total 260 / 280 870 / 870 Output Total 1150 / 1425 3650 / 3650 Balance -890 / -1145 -2780 / -2780 Weight 135.794 kg 135.797 kg Constitutional Constitutional: no acute distress *Routine HEENT Exam Head: Present normocephalic Eye: Present EOMI and PERRL ENT: Present mucous membranes moist *Routine Neck Exam Neck: Present supple; Absent lymphadenopathy *Routine Respiratory Exam Respiratory: Present CTA bilaterally *Routine Cardiovascular Exam Cardiovascular: Present RRR *Routine Abdominal Exam Abdominal: Present soft and normoactive bowel sounds; Absent tenderness *Routine Extremities Exam Extremities: Present edema; Absent cyanosis or clubbing Comments: has b/l LE edema *Routine Skin Exam Skin: Present warm; Absent rash *Routine Neurological Exam Neurological: Present alert and oriented X3 Assessment and Plan *Assessment and plan (1) Biventricular heart failure: Status: Acute Category: Medical Code(s): I50.82 - Biventricular heart failure (2) Severe sleep apnea: Status: Acute Category: Medical Code(s): G47.30 - Sleep apnea, unspecified (3) Morbid obesity: Status: Chronic Category: Medical Code(s): E66.01 - Morbid (severe) obesity due to excess calories (4) Peripheral edema: Status: Acute Category: Medical Code(s): R60.9 - Edema, unspecified (5) Coronary artery disease: Status: Acute Qualifiers: Coronary Disease-Associated Artery/Lesion type: [place] artery [place] vs. transplanted heart: [place] heart Associated angina: without angina Qualified Code(s): I25.10 - Atherosclerotic heart disease of [place] coronary artery without angina pectoris Category: Medical Code(s): I25.10 - Atherosclerotic heart disease of [place] coronary artery without angina pectoris (6) Tobacco dependence: Status: Acute Category: Medical Code(s): F17.200 - Nicotine dependence, unspecified, uncomplicated (7) BMI 45.0-49.9, adult: Status: Acute Category: Medical Code(s): Z68.42 - Body mass index [BMI] 45.0-49.9, adult (8) Pulmonary hypertension: Status: Acute Category: Medical Code(s): I27.20 - Pulmonary hypertension, unspecified (9) Anxiety: Status: Acute Category: Medical Code(s): F41.9 - Anxiety disorder, unspecified (10) Ismael
[2023-05-28 15:11] LABS: Chloride 92 mmol/L (98-107); Sodium 134 mmol/L (136-145)
[2023-05-28 15:14] LABS: Alanine Aminotransferase 32 U/L (12-78); Albumin Level 3.4 g/dl (3.5-5.0); Albumin/Globulin Ratio 1.5 (1.1-1.8); Alkaline Phosphatase 47 U/L (38-126); Anion Gap 8.8 mEq/L (5-15); Aspartate Amino Transferase 24 U/L (17-59); Blood Urea Nitrogen 23 mg/dl (9-20); Calcium 8.3 mg/dl (8.4-10.2); Carbon Dioxide 36 mmol/L (22.0-30.0); Creatinine Clearance Estimated 57 mL/min (50-200); Estimated Glomerular Filt Rate 56 ml/min (>60); GFR (African American) 68 ML/MIN (>60); Globulin 2.2 g/dL (1.3-3.2); Glucose 162 mg/dl (74-100); Total Protein,Serum 5.6 g/dl (6.3-8.2)
[2023-05-28 15:15] LABS: Bilirubin,Total < 0.1 mg/dl (0.2-1.3)
[2023-05-28 15:18] LABS: Potassium 2.8 mmoL/L (3.5-5.1)
--- NOTE | 2023-05-28 15:19 | PC.NURSE ---
notified MD Morocho of pt's critical potassium of 2.8, MD Morocho to order potassium replacement
--- NOTE | 2023-05-28 16:00 | PC.NURSE ---
bumex drip stopped per telephone order readback from Floridalma HALEY pt to get K+ replacement ordered by Rashawn MARTÍNEZ and then bumex 2mg IV at 1800 per emar order
[2023-05-29] VITALS (9 sets, daily range): BP systolic 115–144; BP diastolic 61–76; PULSE 49–71; RESP 18–28; TEMP 36.4–36.8; O2SAT 90–100; BMI 44.2
--- NOTE | 2023-05-29 01:21 | PC.NURSE ---
Dressings to Pt Right sided neck, right wrist and right groin region were changed at this time. No active bleeding present, bruising to neck and groin sites present.
--- NOTE | 2023-05-29 03:03 | PC.NURSE ---
Pt is alert and oriented at times, Pt has slept on and off this shift and seems to be hard to arouse at times. Pt is total assist and requires extensive assistance in repositioning. Pt started the shift at 3L of O2 and began to have periods of sleep apnea, resp notified and has since increase pt to 6L O2, Pt is now sating around 92%. Pt denies pain and needs at this time
--- NOTE | 2023-05-29 09:15 | EXP.CARD.PN ---
Subjective Subjective Date: 05/29/23 Time: 08:00 Principal diagnosis: volume overload, s/p stenting Interval history: Patient reports feeling well this morning. Denies chest pain or shortness of breath. Lower extremity edema is resolving. Morning labs are pending. Has diuresed over 6 liters. Exam Data for Last 24 hours Vital signs and Labs for Last 24 Hours: Temp Pulse Resp BP Pulse Ox O2 Del Method O2 Flow Rate 98.2 F 71 18 126/68 93 L Nasal Cannula 4 05/29/23 08:00 05/29/23 08:00 05/29/23 08:00 05/29/23 08:00 05/29/23 08:00 05/29/23 08:00 05/29/23 08:00 FiO2 32 05/28/23 18:27 Laboratory Results - last 24 hr 05/28/23 14:50: Sodium 134 L, Potassium 2.8 L*, Chloride 92 L, Carbon Dioxide 36 H, Anion Gap 8.8, BUN 23 H, Creatinine 1.30 H, Estimated Creat Clear 57, Estimated GFR 56 L, Est GFR ( Amer) 68, Glucose 162 H, Calcium 8.3 L, Total Bilirubin < 0.1 L, AST 24, ALT 32, Alkaline Phosphatase 47, Total Protein 5.6 L, Albumin 3.4 L, Globulin 2.2, Albumin/Globulin Ratio 1.5 I & O for Last 24 hours: Intake & Output 05/26/23 05/27/23 05/28/23 05/29/23 23:59 23:59 23:59 23:59 Intake Total 260 / 280 1486 / 1606 460 / 460 Output Total 1150 / 1425 6235 / 6235 1200 / 1200 Balance -890 / -1145 -4749 / -4629 -740 / -740 Weight 299 lb 6 oz 299 lb 6.098 oz 299 lb Constitutional Constitutional: no acute distress *Routine Respiratory Exam Respiratory: Present wheezes and symmetric chest movement *Routine Cardiovascular Exam Cardiovascular: Present RRR, Normal S1 and Normal S2 *Routine Abdominal Exam Abdominal: Present soft and normoactive bowel sounds; Absent tenderness *Routine Extremities Exam Extremities: Present edema, full ROM and normal capillary refill Comments: LE edema continues to resolve *Routine Skin Exam Skin: Present intact, dry and warm Detailed Neck Exam: Thyroids Thyroid: Absent bruit Progress Note: A&P Assessment and plan (1) Biventricular heart failure: Status: Acute (2) Severe sleep apnea: Status: Acute (3) Morbid obesity: Status: Chronic (4) Peripheral edema: Status: Acute (5) Coronary artery disease: Status: Acute (6) Tobacco dependence: Status: Acute (7) BMI 45.0-49.9, adult: Status: Acute (8) Pulmonary hypertension: Status: Acute (9) Anxiety: Status: Acute (10) Schizophrenia: Status: Chronic (11) Abdominal aortic aneurysm: Status: Chronic Assessment and Plan Assessment and Plan for All Diagnoses:: Coronary artery disease -Stenting to proximal LAD 05/2023 -Continue DAPT with Plavix and aspirin -Continue atorvastatin 40 mg daily -Continue Coreg 3.125 mg p.o. twice daily Moderate pulmonary hypertension Acute on Chronic Right sided heart failure -Echo from 05/28/2023 shows normal biventricular function with a mildly dilated RV. Repeat echo is pending -Patient remains on Bumex drip at 1 mg/h, has diuresed over 3 L -History of severe sleep apnea, AHI of 61. Patient has CPAP but is unable to tolerate it and states he only wears oxygen in the evenings. 05/29/2023 update: Bumex was turned off yesterday afternoon. Continue to diurese with Bumex 2 mg IV twice daily. Has diuresed over 6 L. Severe lower extremity edema is improving Hyperlipidemia -LDL goal less than 55. Start atorvastatin 40 mg daily Hypertension -Continue to monitor with diuresis CV summary 05/29/2023: Continue to diurese patient with Bumex 2 mg IV twice daily and monitor labs. Official echo report is pending CV meds: Aspirin 81 mg p.o. daily Bumex 2 mg IV twice daily Plavix 75 mg p.o. daily Carvedilol 3.125 mg twice daily Atorvastatin 40 mg p.o. daily
[2023-05-29 09:45] LABS: Basophils % 0.2 % (0.1-2.0); Eosinophils # 0.2 K/mm3 (0.0-0.4); Eosinophils % 1.7 % (0.1-12.0); Hemoglobin 9.9 g/dL (14.1-18.0); Lymphocytes # 1.5 K/mm3 (0.7-4.5); Lymphocytes % 15.7 % (10-50); Mean Corpuscular HGB Conc 34.1 g/dL (31.8-35.4); Mean Corpuscular Hemoglobin 33.8 pg (27.0-31.2); Mean Corpuscular Volume 99.3 fl (80-94); Monocytes # 0.6 K/mm3 (0.1-1.0); Monocytes % 6.1 % (1.7-9.3); Neutrophils # 7.4 K/mm3 (1.8-7.8); Neutrophils % 76.4 % (37.0-80.0); Platelet Count 194 K/mm3 (142-424); Red Blood Count 2.92 M/mm3 (4.60-6.20); Red Cell Distribution Width 14.3 % (11.5-17.5); White Blood Count 9.7 K/mm3 (4.8-10.8)
[2023-05-29 10:04] LABS: NT Pro Brain Natriuretic Pep. 90.7 pg/mL (0-125)
[2023-05-29 10:23] LABS: NT Pro Brain Natriuretic Pep. 92.1 pg/mL (0-125)
[2023-05-29 11:05] LABS: Chloride 93 mmol/L (98-107); Sodium 134 mmol/L (136-145)
[2023-05-29 11:06] LABS: Potassium 3.2 mmoL/L (3.5-5.1)
[2023-05-29 11:09] LABS: Anion Gap 9.2 mEq/L (5-15); Blood Urea Nitrogen 29 mg/dl (9-20); Calcium 8.2 mg/dl (8.4-10.2); Carbon Dioxide 35 mmol/L (22.0-30.0); Creatinine Clearance Estimated 62 mL/min (50-200); Estimated Glomerular Filt Rate 61 ml/min (>60); GFR (African American) 74 ML/MIN (>60); Glucose 169 mg/dl (74-100)
--- NOTE | 2023-05-29 11:14 | SW/DCPLANNER ---
Addendum entered by Yue Collier 05/30/23 14:03: [facility] stated that this patient has been accepted for home health services. Addendum entered by Yue Collier 05/30/23 11:49: Patient information/order has been faxed to [facility]. Original Note: I spoke w/ this patient and his mother regarding plans once medically stable for discharge. PT/OT evaluated patient and recommended placement at time of discharge. Patient stated that he is not interested in placement at this time and would prefer to return home w/ home health services and assistance from family. Patient stated that he has used [facility] in the past and would prefer to use their services again. Patient stated that he has the following items at home: home O2, rolling walker and rollator. Patient's mother was present and stated that herself and other family members assist patient at home. I will continue to follow up w/ this patient and MD until medically stable for discharge. Patient could potentially discharge home tomorrow pending no setbacks.
--- NOTE | 2023-05-29 11:50 | HMH.PTEV ---
Physical Therapy Evaluation Rehab PT IP Evaluation Start: 05/29/23 09:52 Freq: ONCE Status: Active Protocol: Document 05/29/23 11:28 PHORNE (Rec: 05/29/23 11:44 [facility]NE [id number]) Subjective/History History History 63 yowm adm to [facility] with SOA and CAD. He has PMH of morbid obesity, schizophrenia on stable antipsychotic regimen, severe sleep apnea, CAD, heart failure with preserved ejection fraction, hyperlipidemia, anxiety, and AAA. He reports he has an apartment and lives alone, but he can stay with his mother if need be. He is generally independent with all mobility and ADLs at baseline. Subjective Subjective Pt reports feeling a small amount better today, agrees to mobility assessment. New diagnosis of cancer in past 12 No months? Rehab PT IP Eval Objective Appearance Patient Behavior Appropriate Patient Orientation Person,Place,Time Difficulty following instructions none Speech Pattern Clear Ambulation Patient Able to Ambulate Yes Ambulation Observation IP General Gait Pattern Observation Shuffling Step Ambulation Distance (feet) 10 Ambulation Assistive Device Rolling Walker Ambulation Ability Contact Guard/Hand Hold Balance Ability to Arise Able, uses arms to help Sitting Balance Steady, safe Standing Balance Steady, wide stance Dynamic Sitting Balance Ability Fair Dynamic Standing Balance Ability Fair Transfers Bed Transfer Ability Moderate x 1 (50% assist) Chair Transfer Ability Minimal x 1 (25% assist) Sit to Stand Bed Transfer Ability Minimal x 1 (25% assist) Sit to Stand Chair Transfer Ability Minimal x 1 (25% assist) Rehab PT IP prob,goals,plan Problems Date of Evaluation: 05/29/23 PT IP Problems Bed Mobility,Transfers,Gait, Self care Rehab Potential Rehab Potential Good Plan PT Intervention Plan Bed Mobility,Transfers,Gait, Self care,Therapeutic Exercise PT Plan Frequency Daily Duration LOS Discharge Goals Bed Transfer Ability Contact Guard/Hand Hold Sit to Stand Chair Transfer Ability Contact Guard/Hand Hold Ambulation Assistive Device Rolling Walker Ambulation Distance (feet)
--- NOTE | 2023-05-29 13:43 | HMH.OTEV ---
OT Inpatient Evaluation Rehab OT IP Evaluation Start: 05/29/23 09:52 Freq: ONCE Status: Active Protocol: Document 05/29/23 13:37 [facility] (Rec: 05/29/23 13:42 [facility] [id number]) Rehab OT IP Assessment Subjective History Pt oriented x 2 on arrival. Pt agreeable to engage in therapy evaluation. Pt's mother present and supportive. 63 yowm adm to [facility] with SOA and CAD. He has PMH of morbid obesity, schizophrenia on stable antipsychotic regimen, severe sleep apnea, CAD, heart failure with preserved ejection fraction, hyperlipidemia, anxiety, and AAA. He reports he has an apartment and lives alone, but does stay with his mother at times. He is generally independent with all mobility. MOther reports recently he has been requiring some assistane with dressing. She also helps him transfer in and out of the bath tub during showers for safety. He is able to cook small microwave meals, but usually she assists with the cleaning, cooking, laundry, etc. He does have a walker and a rolling walker but does not use them in transfers. Subjective I was asleep. Objective Patient Orientation Person,Birthday Right Upper Extremity Gross ROM WFL Left Upper Extremity Gross ROM WFL Bed Mobility bed mobility-scooting,bed mobility - supine/sit,bed mobility - rolling Assist Level Moderate x 2 (50% assist) Transfer Training Sit/Stand Transfer,Sit/Stand/ Step Transfer Assist Level Minimal x 2 (25% assist) Chair Transfer Ability Minimal x 2 (25% assist) Chair Transfer Technique Stand Step Pivot Rehab OT IP prob,goals,plan Problems Date of Evaluation: 05/29/23 OT IP Problems Bed Mobility,Transfers,Balance ,Self care,Safety Rehab Potential Rehab Potential Good Equipment Needs Assist
--- NOTE | 2023-05-29 17:59 | EXP.PN ---
Subjective *Date: 05/29/23 *Time: 17:59 Interval history: Patient seen and evaluated at the bedside. still has SOB on walking. Patient denied chest pain nausea vomiting diarrhea constipation dysuria fevers chills. Exam Data for Last 24 hours Vital signs and Labs for Last 24 Hours: Temp Pulse Resp BP Pulse Ox O2 Del Method O2 Flow Rate 97.8 F 50 L 18 144/71 H 93 L Nasal Cannula 3 05/29/23 15:55 05/29/23 16:00 05/29/23 15:55 05/29/23 15:55 05/29/23 15:55 05/29/23 15:55 05/29/23 15:55 FiO2 32 05/28/23 18:27 Laboratory Results - last 24 hr 05/29/23 09:35: WBC 9.7 D, RBC 2.92 L, Hgb 9.9 L, Hct 29.0 L, MCV 99.3 H, MCH 33.8 H, MCHC 34.1, RDW 14.3, Plt Count 194, MPV 8.0, Neut % (Auto) 76.4, Lymph % (Auto) 15.7, [place] % (Auto) 6.1, Eos % (Auto) 1.7, Baso % (Auto) 0.2, Neut # (Auto) 7.4, Lymph # (Auto) 1.5, [place] # (Auto) 0.6, Eos # (Auto) 0.2, Baso # (Auto) 0.0, Sodium 134 L, Potassium 3.2 L, Chloride 93 L, Carbon Dioxide 35 H, Anion Gap 9.2, BUN 29 H D, Creatinine 1.20, Estimated Creat Clear 62, Estimated GFR 61, Est GFR ( Amer) 74, Glucose 169 H, Calcium 8.2 L, NT-Pro-B Natriuret Pep 90.7 05/29/23 09:35: NT-Pro-B Natriuret Pep 92.1 I & O for Last 24 hours: Intake & Output 05/26/23 05/27/23 05/28/23 05/29/23 23:59 23:59 23:59 23:59 Intake Total 260 / 280 1486 / 1606 730 / 730 Output Total 1150 / 1425 6235 / 6235 1485 / 1485 Balance -890 / -1145 -4749 / -4629 -755 / -755 Weight 135.794 kg 135.797 kg 135.62 kg Constitutional Constitutional: no acute distress *Routine HEENT Exam Head: Present normocephalic Eye: Present EOMI and PERRL ENT: Present mucous membranes moist *Routine Neck Exam Neck: Present supple; Absent lymphadenopathy *Routine Respiratory Exam Respiratory: Present CTA bilaterally *Routine Cardiovascular Exam Cardiovascular: Present RRR *Routine Abdominal Exam Abdominal: Present soft and normoactive bowel sounds; Absent tenderness *Routine Extremities Exam Extremities: Absent cyanosis, clubbing or edema Comments: has b/l LE edema *Routine Skin Exam Skin: Present warm; Absent rash *Routine Neurological Exam Neurological: Present alert and oriented X3 Detailed Lower Extremity Exam Comments: has b/l LE edema Assessment and Plan *Assessment and plan (1) Biventricular heart failure: Status: Acute Category: Medical Code(s): I50.82 - Biventricular heart failure (2) Severe sleep apnea: Status: Acute Category: Medical Code(s): G47.30 - Sleep apnea, unspecified (3) Morbid obesity: Status: Chronic Category: Medical Code(s): E66.01 - Morbid (severe) obesity due to excess calories (4) Peripheral edema: Status: Acute Category: Medical Code(s): R60.9 - Edema, unspecified (5) Coronary artery disease: Status: Acute Qualifiers: Coronary Disease-Associated Artery/Lesion type: [place] artery [place] vs. transplanted heart: [place] heart Associated angina: without angina Qualified Code(s): I25.10 - Atherosclerotic heart disease of [place] coronary artery without angina pectoris Category: Medical Code(s): I25.10 - Atherosclerotic heart disease of [place] coronary artery without angina pectoris (6) Tobacco dependence: Status: Acute Category: Medical Code(s): F17.200 - Nicotine dependence, unspecified, uncomplicated (7) BMI 45.0-49.9, adult: Status: Acute Category: Medical Code(s): Z68.42 - Body mass index [BMI] 45.0-49.9, adult (8) Pulmonary hypertension: Status: Acute Category: Medical Code(s): I27.20 - Pulmonary hypertension, unspecified (9) Anxiety: Status: Acute Category: Medical Code(s): F41.9 - Anxiety disorder, unspecified (10) Schizophrenia: Status: Chronic Qualifiers: Schizophrenia type: unspecified Qualified Code(s): F20.9 - Schizophrenia, unspecified [place]
[2023-05-30] VITALS: BP 122/66; PULSE 54; PULSE 57; RESP 14; TEMP 36.7; O2SAT 91
[2023-05-30 04:00] VITALS: BP 104/58; PULSE 58; PULSE 66; RESP 22; TEMP 36.3; O2SAT 91; BMI 43.4
--- NOTE | 2023-05-30 05:41 | PC.NURSE ---
Patient has had a good night tonight. Has been able to rest and sleep well. Still on 2 L NC. Does have a buenrostro still for I&O. Patient states he does feel better breathing grajeda. Swelling has gone down in legs as well. Mom still at bedside. no other issues noted
[2023-05-30 06:00] VITALS: O2SAT 92
[2023-05-30 08:00] VITALS: BP 131/73; PULSE 60; PULSE 67; RESP 22; TEMP 36.9; O2SAT 94; O2SAT 97
--- NOTE | 2023-05-30 10:12 | ECG_ITS ---
APPROVED REPORT Exam: Resting ECG HR:58 bpm ECG Measurements Heart Rate 58 AXES DC 179 P 29 QRSd 99 QRS -1 QT 297 T 63 QTc 293 Conclusion SINUS BRADYCARDIA LOW QRS VOLTAGE IN PRECORDIAL LEADS [QRS DEFLECTION < 1.0 mV IN CHEST LEADS] NONSPECIFIC T-WAVE ABNORMALITY BORDERLINE ECG UNCONFIRMED REPORT Electronically signed by : Rishi English MD 05/30/2023 20:57:44
[2023-05-30 11:18] VITALS: BP 137/70; PULSE 64; RESP 19; TEMP 36.9; O2SAT 94
--- NOTE | 2023-05-30 12:54 | EXP.CARD.PN ---
Subjective Subjective Date: 05/30/23 Time: 09:30 Principal diagnosis: volume overload, s/p stenting Interval history: Diuresed a total of 7L since admission. Awaiting morning labs. Feeling much better. Exam Constitutional Constitutional: no acute distress and cooperative *Routine HEENT Exam Eye: Present PERRL *Routine Respiratory Exam Respiratory: Present CTA bilaterally; Absent accessory muscle use, wheezes or crackles *Routine Cardiovascular Exam Cardiovascular: Present RRR, Normal S1 and Normal S2; Absent murmur, gallop or rubs *Routine Abdominal Exam Abdominal: Present soft; Absent tenderness *Routine Extremities Exam Extremities: Present edema and pulses intact; Absent cyanosis *Routine Skin Exam Skin: Present intact; Absent erythema or wounds *Routine Neurological Exam Neurological: Present alert and oriented X3 Routine Psychiatric Exam Psychiatric: Present cooperative Progress Note: A&P Assessment and plan (1) Biventricular heart failure: Status: Acute (2) Severe sleep apnea: Status: Acute (3) Morbid obesity: Status: Chronic (4) Peripheral edema: Status: Acute (5) Coronary artery disease: Status: Acute (6) Tobacco dependence: Status: Acute (7) BMI 45.0-49.9, adult: Status: Acute (8) Pulmonary hypertension: Status: Acute (9) Anxiety: Status: Acute (10) Schizophrenia: Status: Chronic (11) Abdominal aortic aneurysm: Status: Chronic Assessment and Plan Assessment and Plan for All Diagnoses:: Coronary artery disease -Direct admitted from office on Saturday with PAVON and LE Edema -Stenting to proximal LAD 05/2023 -CCS = 0 -Continue DAPT with Plavix and aspirin, atorvastatin 40 mg, Continue Coreg 3.125 mg p.o. twice daily Acute on Chronic Right sided heart failure -RHC and clinical findings on presentation indicated severe volume overload -Echo from 05/28/2023 shows normal biventricular function with a mildly dilated RV but normal LV size/function. Hx of severe sleep apnea -On Bumex drip for several day. Now on PO Bumex 2mg BID -Has diuresed 7L so far. -Mild remaining edema bilateral ankles. -Patient remains on Bumex drip at 1 mg/h, has diuresed over 3 L Severe sleep apnea, AHI of 61. - Patient has CPAP but is unable to tolerate it and states he only wears oxygen in the evenings. Hyperlipidemia -LDL goal less than 55. Start atorvastatin 40 mg daily Hypertension -Continue to monitor with diuresis Morbid Obesity, BMI 43 - would benefit from aggressive weight loss - f/u on this outpatient Schizophrenia - mother is bedside providing additional history and assistanec CV summary 05/29/2023: Continue to diurese patient with Bumex 2 mg IV twice daily and monitor labs. Official echo report is pending *Further plans pending results of daily labs.
[2023-05-30 13:33] LABS: Chloride 91 mmol/L (98-107); Potassium 3.6 mmoL/L (3.5-5.1); Sodium 133 mmol/L (136-145)
[2023-05-30 13:36] LABS: Blood Urea Nitrogen 29 mg/dl (9-20); Creatinine Clearance Estimated 57 mL/min (50-200); Estimated Glomerular Filt Rate 56 ml/min (>60); GFR (African American) 68 ML/MIN (>60)
[2023-05-30 13:37] LABS: Anion Gap 8.6 mEq/L (5-15); Calcium 8.5 mg/dl (8.4-10.2); Carbon Dioxide 37 mmol/L (22.0-30.0); Glucose 192 mg/dl (74-100)
--- NOTE | 2023-05-30 14:00 | EXP.DC.SUM ---
General Admission date:: 05/27/23 Discharge date: 05/30/23 HPI HPI HPI: Mr. Youssef is a 63-year-old male with history of morbid obesity, schizophrenia on stable antipsychotic regimen, severe sleep apnea, CAD, heart failure with preserved ejection fraction, hyperlipidemia, anxiety, and AAA. He presented to cardiology clinic as an outpatient for routine follow-up due to worsening shortness of breath and weight gain over the past several weeks to months. He lives with his mother who is his POA. States that he has been having increased swelling in his legs and throughout his body. Had to use a wheelchair to get in today. Weight is up 6 pounds from last visit. In cardiology clinic because of his dyspnea and weight gain, decision made to take patient for left and right heart cath. During procedure, patient noted to have elevated PA pressures, severe volume overload, and a proximal LAD stenosis necessitating stenting. Cardiology requested admission for further treatment and aggressive diuresis. Patient admitted to stepdown unit for care on Bumex drip. On evaluation, patient's blood pressure is softer however map is between 60 and 65. On 2 L nasal cannula oxygen at this time for sats in the low 90s. Heart rate within normal range. Alert and interactive. At baseline mentation. Appears in mild distress. Mother at bedside. Discussed CODE STATUS, patient is DNR. Requests aggressive treatment for condition but no aggressive measures if heart stops or he stops breathing. Currently on 1 mg/h of Bumex, is only had about 100 cc out so far in the first hour. Patient complaining of some pain in his right neck, appears to have some swelling at site of right IJ access. No significant bleeding in groin. Right trace slit in place on right radial artery. Hospital Course Hospital Course Hospital Course: Patient is a 63-year-old male who presented to hospital due to shortness of breath. Patient has past medical history of heart failure with preserved ejection fraction, sleep apnea, CAD, hyperlipidemia. Assessment Acute on chronic heart failure with preserved ejection fraction CAD Morbid obesity Tobacco use Schizophrenia DC on po Bumex, f/u with cardiology as OP, counselled patient on low salt diet Exam Data for Last 24 hours Vital signs and Labs for Last 24 Hours: Temp Pulse Resp BP Pulse Ox O2 Del Method O2 Flow Rate 98.4 F 64 19 137/70 94 L Nasal Cannula 2 05/30/23 11:18 05/30/23 11:18 05/30/23 11:18 05/30/23 11:18 05/30/23 11:18 05/30/23 13:00 05/30/23 13:00 FiO2 32 05/28/23 18:27 Laboratory Results - last 24 hr 05/30/23 13:10: Sodium 133 L, Potassium 3.6, Chloride 91 L, Carbon Dioxide 37 H, Anion Gap 8.6, BUN 29 H, Creatinine 1.30 H, Estimated Creat Clear 57, Estimated GFR 56 L, Est GFR ( Amer) 68, Glucose 192 H, Calcium 8.5 I & O for Last 24 hours: Intake & Output 05/27/23 05/28/23 05/29/23 05/30/23 23:59 23:59 23:59 23:59 Intake Total 260 / 280 1486 / 1606 1890 / 1890 830 / 830 Output Total 1150 / 1425 6235 / 6235 2285 / 3985 1700 / 1700 Balance -890 / -1145 -4749 / -4629 -395 / -2095 -870 / -870 Weight 135.794 kg 135.797 kg 135.62 kg 132.903 kg Constitutional Constitutional: no acute distress *Routine HEENT Exam Head: Present normocephalic Eye: Present EOMI and PERRL ENT: Present mucous membranes moist *Routine Neck Exam Neck: Present supple; Absent lymphadenopathy *Routine Respiratory Exam Respiratory: Present CTA bilaterally *Routine Cardiovascular Exam Cardiovascular: Present RRR *Routine Abdominal Exam Abdominal: Present soft and normoactive bowel sounds; Absent tenderness *Routine Extremities Exam Extremities: Absent cyanosis, clubbing or edema Comments: has b/l LE edema *Routine Skin Exam Skin: Present warm; Absent rash *Routine Neurological Exam Neurological: Present alert and oriented X3 Detailed Lower Extremity Exam Comments: has b/l LE edema Results Data Com
--- NOTE | 2023-05-30 14:31 | PC.NURSE ---
iv removed and f/c removed.
--- NOTE | 2023-05-31 16:15 | CARE MANAGER ---
Called and spoke with patient's mother regarding recent discharge. She stated that he is doing well. No concerns at time of call. Aware of scheduled f/u appts.
== END 2023-05-30 15:34 | disposition home health service (06) | DRG 321 ==
LOC: 2ND 14:05
PROVIDERS: Internal Medicine; Nurse Practitioner; Physician Assistant; Admitting Provider Internal Medicine Adolescent Medicine; PCP Nurse Practitioner Family; Visit Provider Internal Medicine Adolescent Medicine
PROC: 027034Z Dilation of Coronary Artery, One Artery with Drug-eluting Intraluminal Device, Percutaneous Approach (ICD-10-PCS; principal; 2023-05-27 12:15)
DX: I50.33 Acute on chronic diastolic (congestive) heart failure (principal); Z68.42 Body mass index [BMI] 45.0-49.9, adult; E66.01 Morbid (severe) obesity due to excess calories; E78.5 Hyperlipidemia, unspecified; F17.200 Nicotine dependence, unspecified, uncomplicated; G47.33 Obstructive sleep apnea (adult) (pediatric); I11.0 Hypertensive heart disease with heart failure; I27.20 Pulmonary hypertension, unspecified; I27.21 Secondary pulmonary arterial hypertension; I50.82 Biventricular heart failure; I65.29 Occlusion and stenosis of unspecified carotid artery; I73.9 Peripheral vascular disease, unspecified; G47.30 Sleep apnea, unspecified; F41.9 Anxiety disorder, unspecified; F20.9 Schizophrenia, unspecified; Z95.5 Presence of coronary angioplasty implant and graft; I71.40 Abdominal aortic aneurysm, without rupture, unspecified; G40.909 Epilepsy, unspecified, not intractable, without status epilepticus; Z66 Do not resuscitate; K21.9 Gastro-esophageal reflux disease without esophagitis; F17.210 Nicotine dependence, cigarettes, uncomplicated; I25.110 Atherosclerotic heart disease of native coronary artery with unstable angina pectoris
CPT/HCPCS: 36415; 71045; 76536; 80048; 80053; 82810; 82962; 83735; 83880; 85014; 85018; 85025; 85347; 92928; 93005; 93306; 93460; 94640; 97110; 97116; 97163; 97166; 97530; 99152; 99153; C1725; C1760; C1769; C1876; C1894; C9600; J1644; J3475; Q9967

== ENCOUNTER → 2023-06-10 13:36 | Outpatient (CLI) | payer MEDICARE, MEDICAID, SELFPAY ==
[2023-06-10 14:15] LABS: Hematocrit 37.7 % (42.0-52.0); Hemoglobin 11.9 g/dL (14.1-18.0)
[2023-06-10 14:19] LABS: Blood Urea Nitrogen 22 mg/dl (9-20); Estimated Glomerular Filt Rate 76 ml/min (>60); GFR (African American) 92 ML/MIN (>60)
== END ==
PROVIDERS: PCP Nurse Practitioner Family; Visit Provider Internal Medicine
DX: I25.10 Atherosclerotic heart disease of native coronary artery without angina pectoris (principal)
CPT/HCPCS: 36415; 82565; 84520; 85014; 85018

== ENCOUNTER → 2023-06-17 12:11 | Outpatient (CLI) | payer MEDICARE, MEDICAID, SELFPAY ==
[2023-06-17 13:14] LABS: Chloride 84 mmol/L (98-107); Potassium 3.1 mmoL/L (3.5-5.1); Sodium 132 mmol/L (136-145)
[2023-06-17 13:17] LABS: Blood Urea Nitrogen 34 mg/dl (9-20); Estimated Glomerular Filt Rate 61 ml/min (>60); GFR (African American) 74 ML/MIN (>60)
[2023-06-17 13:18] LABS: Calcium 9.5 mg/dl (8.4-10.2); Glucose 125 mg/dl (74-100)
[2023-06-17 13:25] LABS: Anion Gap 12.1 mEq/L (5-15); Carbon Dioxide 39 mmol/L (22.0-30.0)
== END ==
PROVIDERS: PCP Nurse Practitioner Family; Visit Provider Internal Medicine
DX: E66.01 Morbid (severe) obesity due to excess calories (principal); I25.10 Atherosclerotic heart disease of native coronary artery without angina pectoris; J43.9 Emphysema, unspecified; R06.00 Dyspnea, unspecified; R60.9 Edema, unspecified; Z68.41 Body mass index [BMI] 40.0-44.9, adult
CPT/HCPCS: 36415; 80048

== ENCOUNTER → 2023-06-26 10:31 | Outpatient (CLI) | payer MEDICARE, MEDICAID, SELFPAY ==
[2023-06-26 12:01] LABS: Chloride 83 mmol/L (98-107); Potassium 3.3 mmoL/L (3.5-5.1); Sodium 132 mmol/L (136-145)
[2023-06-26 12:04] LABS: Blood Urea Nitrogen 39 mg/dl (9-20); Calcium 9.8 mg/dl (8.4-10.2); Estimated Glomerular Filt Rate 61 ml/min (>60); GFR (African American) 74 ML/MIN (>60); Glucose 164 mg/dl (74-100)
[2023-06-26 12:10] LABS: Anion Gap 12.3 mEq/L (5-15)
[2023-06-26 12:35] LABS: Carbon Dioxide 36 mmol/L (22.0-30.0)
== END ==
PROVIDERS: Nurse Practitioner Family; PCP Nurse Practitioner Family; Visit Provider Internal Medicine
DX: G47.30 Sleep apnea, unspecified (principal); I25.10 Atherosclerotic heart disease of native coronary artery without angina pectoris; R60.0 Localized edema; Z72.0 Tobacco use
CPT/HCPCS: 36415; 80048

== ENCOUNTER 2023-07-24 11:35 | Outpatient (CLI) | payer MEDICARE, MEDICAID, SELFPAY ==
[2023-07-24 12:07] LABS: Basophils # 0.1 K/mm3 (0-0.2); Basophils % 0.6 % (0.1-2.0); Eosinophils # 0.2 K/mm3 (0.0-0.4); Eosinophils % 1.6 % (0.1-12.0); Hematocrit 49.2 % (42.0-52.0); Hemoglobin 16.1 g/dL (14.1-18.0); Lymphocytes # 1.7 K/mm3 (0.7-4.5); Mean Corpuscular HGB Conc 32.8 g/dL (31.8-35.4); Mean Corpuscular Hemoglobin 31.6 pg (27.0-31.2); Mean Corpuscular Volume 96.4 fl (80-94); Mean Platelet Volume 7.4 fl (7.4-10.4); Monocytes # 0.6 K/mm3 (0.1-1.0); Monocytes % 6.4 % (1.7-9.3); Neutrophils # 6.9 K/mm3 (1.8-7.8); Neutrophils % 73.5 % (37.0-80.0); Platelet Count 226 K/mm3 (142-424); Red Cell Distribution Width 14.8 % (11.5-17.5); White Blood Count 9.4 K/mm3 (4.8-10.8)
[2023-07-24 12:52] LABS: Chloride 84 mmol/L (98-107)
[2023-07-24 12:53] LABS: Potassium 3.4 mmoL/L (3.5-5.1); Sodium 131 mmol/L (136-145)
[2023-07-24 12:55] LABS: Alanine Aminotransferase 40 U/L (12-78); Alkaline Phosphatase 36 U/L (38-126); Anion Gap 15.4 mEq/L (5-15); Aspartate Amino Transferase 40 U/L (17-59); Bilirubin,Direct 0.1 mg/dl (0.0-0.4); Bilirubin,Indirect 0.4 mg/dL (0.0-0.9); Bilirubin,Total 0.5 mg/dl (0.2-1.3); Bilirubin,Unconjugated 0.4 mg/dL (0.0-1.1); Blood Urea Nitrogen 33 mg/dl (9-20); Calcium 9.6 mg/dl (8.4-10.2); Carbon Dioxide 35 mmol/L (22.0-30.0); Cholesterol 269 mg/dl (140-200); Estimated Glomerular Filt Rate 68 ml/min (>60); GFR (African American) 82 ML/MIN (>60); Glucose 159 mg/dl (74-100); Triglycerides 326 mg/dl (30-150); VLDL Cholesterol 65 mg/dL (0-40)
[2023-07-24 12:56] LABS: Chol/HDL Ratio 8.7 (1-3.5); HDL Cholesterol 31 mg/dl (40-60); Magnesium 1.4 mg/dl (1.6-2.3); Total Protein,Serum 6.4 g/dl (6.3-8.2)
[2023-07-24 13:07] LABS: Direct LDL Cholesterol 179.42 mg/dL (100-129)
[2023-07-24 13:14] LABS: Free T4 (Free Thyroxine) 1.39 ng/dl (0.78-2.19)
[2023-07-24 13:27] LABS: Thyroid Stimulating Hormone 0.62 uIU/mL (0.465-4.68)
== END 2023-07-24 23:59 ==
LOC: LAB 11:36
PROVIDERS: Visit Provider Physician Assistant
DX: E66.01 Morbid (severe) obesity due to excess calories (principal); E78.5 Hyperlipidemia, unspecified; I11.9 Hypertensive heart disease without heart failure; I25.10 Atherosclerotic heart disease of native coronary artery without angina pectoris; I27.20 Pulmonary hypertension, unspecified; I50.9 Heart failure, unspecified; I65.29 Occlusion and stenosis of unspecified carotid artery; J43.9 Emphysema, unspecified; R06.00 Dyspnea, unspecified; R60.9 Edema, unspecified; Z68.41 Body mass index [BMI] 40.0-44.9, adult
CPT/HCPCS: 36415; 80048; 80061; 80076; 83735; 84439; 84443; 85025

== ENCOUNTER 2023-08-29 11:14 | Outpatient (CLI) | payer MEDICARE, MEDICAID, SELFPAY ==
[2023-08-29 11:39] LABS: Basophils % 0.1 % (0.1-2.0); Eosinophils # 0.3 K/mm3 (0.0-0.4); Eosinophils % 1.8 % (0.1-12.0); Hematocrit 41.1 % (42.0-52.0); Hemoglobin 13.9 g/dL (14.1-18.0); Lymphocytes # 1.6 K/mm3 (0.7-4.5); Mean Corpuscular HGB Conc 33.8 g/dL (31.8-35.4); Mean Corpuscular Hemoglobin 32.2 pg (27.0-31.2); Mean Corpuscular Volume 95.3 fl (80-94); Mean Platelet Volume 7.5 fl (7.4-10.4); Monocytes # 0.7 K/mm3 (0.1-1.0); Monocytes % 4.7 % (1.7-9.3); Neutrophils # 11.8 K/mm3 (1.8-7.8); Neutrophils % 82.4 % (37.0-80.0); Platelet Count 200 K/mm3 (142-424); Red Blood Count 4.32 M/mm3 (4.60-6.20); Red Cell Distribution Width 15.3 % (11.5-17.5); White Blood Count 14.3 K/mm3 (4.8-10.8)
[2023-08-29 12:34] LABS: Alanine Aminotransferase 28 U/L (12-78); Albumin Level 3.8 g/dl (3.5-5.0); Alkaline Phosphatase 58 U/L (38-126); Aspartate Amino Transferase 24 U/L (17-59); Bilirubin,Direct 0.2 mg/dl (0.0-0.4); Bilirubin,Indirect 0.3 mg/dL (0.0-0.9); Bilirubin,Total 0.5 mg/dl (0.2-1.3); Bilirubin,Unconjugated 0.3 mg/dL (0.0-1.1); Blood Urea Nitrogen 42 mg/dl (9-20); Calcium 9.4 mg/dl (8.4-10.2); Carbon Dioxide 30 mmol/L (22.0-30.0); Chloride 89 mmol/L (98-107); Chol/HDL Ratio 5.7 (1-3.5); Cholesterol 183 mg/dl (140-200); Estimated Glomerular Filt Rate 61 ml/min (>60); GFR (African American) 74 ML/MIN (>60); Glucose 154 mg/dl (74-100); HDL Cholesterol 32 mg/dl (40-60); Sodium 128 mmol/L (136-145); Triglycerides 210 mg/dl (30-150); VLDL Cholesterol 42 mg/dL (0-40)
[2023-08-29 12:45] LABS: Direct LDL Cholesterol 104.86 mg/dL (100-129)
[2023-08-29 12:51] LABS: Free T4 (Free Thyroxine) 1.24 ng/dl (0.78-2.19)
[2023-08-29 13:04] LABS: Thyroid Stimulating Hormone 1.35 uIU/mL (0.465-4.68)
== END 2023-08-29 23:59 ==
LOC: LAB 11:16
PROVIDERS: PCP Nurse Practitioner Family; Visit Provider Nurse Practitioner Family
DX: E66.01 Morbid (severe) obesity due to excess calories (principal); E78.5 Hyperlipidemia, unspecified; I11.9 Hypertensive heart disease without heart failure; I25.10 Atherosclerotic heart disease of native coronary artery without angina pectoris; I27.20 Pulmonary hypertension, unspecified; I50.9 Heart failure, unspecified; I65.29 Occlusion and stenosis of unspecified carotid artery; J43.9 Emphysema, unspecified; R06.00 Dyspnea, unspecified; R60.9 Edema, unspecified
CPT/HCPCS: 36415; 80048; 80061; 80076; 84439; 84443; 85025

== ENCOUNTER 2023-09-18 16:22 | Emergency (ER) | payer MEDICARE, MEDICAID, SELFPAY ==
[2023-09-18] VITALS (8 sets, daily range): BP systolic 106–131; BP diastolic 50–68; PULSE 63–82; RESP 16; TEMP 36.8; O2SAT 93–96; BMI 40.8
--- NOTE | 2023-09-18 17:12 | HMH.EDGENADL ---
Discharge Plan Disposition Patient Disposition: Xfer Other Condition: Good Prescriptions Prescriptions: No Action albuterol sulfate [Ventolin HFA] 90 mcg/actuation HFA aerosol inhaler 2 puff INHALATION Q4HP PRN (Reason: Shortness Of Breath) esomeprazole magnesium [Nexium] 40 mg capsule,delayed release(DR/EC) 40 mg PO BID Risperdal Consta 50 mg/2 mL suspension,extended rel recon 50 mg IM Q14D melatonin 5 mg tablet 10 mg PO HS prazosin 1 mg capsule 1 mg PO HS Patient Comments: TAKE ONE CAPSULE BY MOUTH AT BEDTIME benztropine 1 mg tablet 1 mg PO DAILY Patient Comments: TAKE ONE TABLET BY MOUTH EVERY MORNING tamsulosin 0.4 mg capsule 0.4 mg PO HS Patient Comments: TAKE ONE CAPSULE BY MOUTH AT BEDTIME trazodone 100 mg tablet 200 mg PO HS metolazone 2.5 mg tablet 2.5 mg PO DAILY Qty: 30 5RF omega-3 acid ethyl esters 1 gram capsule 2 g PO BID Patient Comments: TAKE TWO CAPSULES BY MOUTH AT NOON and TAKE TWO CAPSULES BY MOUTH EVERY EVENING docusate sodium 100 mg capsule 100 mg PO BID bumetanide 2 mg tablet 2 mg PO BID 90 Days Qty: 180 3RF Patient Comments: TAKE TWO TABLETS BY MOUTH EVERY DAY spironolactone [Aldactone] 100 mg tablet 100 mg PO DAILY Qty: 90 3RF atorvastatin 80 mg tablet 80 mg PO DAILY Qty: 30 2RF magnesium oxide 400 mg magnesium capsule 400 mg PO DAILY Qty: 30 3RF potassium chloride 20 mEq tablet extended release 20 meq PO DAILY Qty: 7 0RF irbesartan 75 mg tablet 75 mg PO DAILY Qty: 30 3RF carvedilol 3.125 mg tablet 3.125 mg PO BID Qty: 180 1RF clopidogrel 75 mg tablet 75 mg PO DAILY Qty: 90 3RF divalproex 500 mg tablet,delayed release (DR/EC) 1,000 mg PO HS Patient Comments: TAKE ONE TABLET BY MOUTH EVERY MORNING and TAKE TWO TABLETS BY MOUTH AT BEDTIME fluticasone propion-salmeterol [Advair Diskus] 500-50 mcg/dose blister with device 1 ea INHALATION BID olanzapine 10 mg tablet 10 mg PO HS Patient Comments: TAKE ONE TABLET BY MOUTH AT BEDTIME Referrals Follow up/Referrals: [place],Sharron P, [employer] [employer] [Primary Care Provider] - See instructions Activity Restrictions/Add. Instructions Additional Instructions/Restrictions: Function Clinical Impressions Clinical Impression: Declining functional status, Adult failure to thrive, Hyponatremia Stand Alone Forms Stand Alone Forms: Transfer Record - ED Discharge ED Provider: Daphne Keller General Adult HPI <BANDAR Delgadillo - Last Filed: 09/18/23 20:02> General Chief complaint: Psychiatric Symptoms Stated complaint: psyche issue, Time Seen by Provider: 09/18/23 16:39 Mode of Arrival: Wheelchair Source of Information: Patient and Parent(s) Limitations: No Limitations Description of Symptoms (Recalled from ER Triage Doc. by RN): The pts mother, Kelsie, states she is here to find the pt placement. Kelsie states she talked to Dr. Marrero and he requested she come to the ER to have him placed. Mom reports the pt is a paranoid schizophrenic. The pt sees Adri for his psychiatric care. Kelsie states he received his risperodol injection today. Mom reports he has been taking all of his medications as prescribed. The pt over the last two months has had a shuffling gate, nonweight bearing at times, and incontinent. pt denies visual hallucinations. However, pt states he is having auditory hallucinations stating... God damn it Levi as well as, God damn it Levi you're acting like a 3 year old. pt denies SI and HI. pt reports having pain all over. History of Present Illness HPI narrative: Patient is a 63-year-old male who presents with his mother initially with a chief complaint of psychiatric issues . Patient has a past medical history of paranoid schizophrenia who is followed by adri as an outpatient, history of atherosclerotic cardiovascular disease followed by Dr. Marrero locally, history of obstructive sleep apnea congestive heart failure pulmonary artery hypertension coronary artery bypass graft COPD abdominal aortic aneurysm status post graft repair hyperlipidemia and hypertension and morbid obesity. Patient resides with his 83-year-old mother and over the last 6 months has had a significant functional decline to the point where he is essentially requiring total care to perform all activities of daily living including ambulation. Today patient could not get up and the mother was able to assist in cleaning him after he had incontinence of stool. That point it took him 40 minutes to get the patient 20 feet to a vehicle to get him to the ER for evaluation. Patient himself denies chest pain fever chills hemoptysis hematochezia melena nausea vomiting diarrhea. Related Data Home Medications Medication Instructions Recorded Confirmed albuterol sulfate 90 mcg/actuation 2 puff inhalation Q4HP PRN 09/24/17 08/29/23 aerosol inhaler (Ventolin HFA) Shortness Of Breath docusate sodium 100 mg capsule 100 mg PO BID Constipation 11/07/20 08/29/23 esomeprazole magnesium 40 mg 40 mg PO BID Acid Reflux 11/07/20 08/29/23 capsule,delayed release (Nexium) omega-3 acid ethyl esters 1 gram 2 g PO BID Supplement 11/07/20 08/29/23 capsule risperidone microspheres 50 mg/2 50 mg IM Q14D Mood 11/14/21 08/29/23 mL intramuscular susp,ext release (Risperdal Consta) melatonin 5 mg tablet 10 mg PO HS sleep 09/11/22 08/29/23 benztropine 1 mg tablet 1 mg PO DAILY Tremors 03/14/23 08/29/23 prazosin 1 mg capsule 1 mg PO HS Mood 03/14/23 08/29/23 tamsulosin 0.4 mg capsule 0.4 mg PO HS Prostate 03/14/23 08/29/23 trazodone 100 mg tablet 200 mg PO HS sleep 03/14/23 08/29/23 fluticasone 500 mcg-salmeterol 50 1 ea inhalation BID Breathing 04/10/23 08/29/23 mcg/dose blistr powdr for Problems inhalation (Advair Diskus) olanzapine 10 mg tablet 10 mg PO HS Mood 04/10/23 08/29/23 divalproex 500 mg tablet,delayed 1,000 mg PO HS Seizures 05/27/23 08/29/23 release Previous Rx's Medication Instructions Recorded metolazone 2.5 mg tablet 2.5 mg PO DAILY #30 tabs 06/10/23 bumetanide 2 mg tablet 2 mg PO BID Fluid 90 days #180 tabs 06/17/23 spironolactone 100 mg tablet 100 mg PO DAILY #90 tabs 06/19/23 (Aldactone) atorvastatin 80 mg tablet 80 mg PO DAILY #30 tabs 07/29/23 irbesartan 75 mg tablet 75 mg PO DAILY High Blood Pressure 07/29/23 #30 tabs magnesium oxide 400 mg PO DAILY #30 caps 07/29/23 potassium chloride 20 mEq 20 meq PO DAILY #7 tabs 07/29/23 tablet,extended release carvedilol 3.125 mg tablet 3.125 mg PO BID High Blood 09/11/23 Pressure #180 tabs clopidogrel 75 mg tablet 75 mg PO DAILY Platelet Inhibitor 09/11/23 #90 tabs Allergies Allergy/AdvReac Type Severity Reaction Status Date / Time gabapentin Allergy Severe unknown Verified 08/29/23 10:25 bupropion [From Wellbutrin] Allergy Mild Verified 08/29/23 10:25 duloxetine [From Cymbalta] Allergy Mild Verified 08/29/23 10:25 gemfibrozil [From Lopid] Allergy Mild Verified 08/29/23 10:25 quetiapine [From Seroquel] Allergy Mild Verified 08/29/23 10:25 NSAIDS (Non-Steroidal Allergy Verified 08/29/23 10:25 Anti-Inflamma Ofbrqrd-OHY-YfT Reductase Allergy Verified 09/18/23 17:08 Inhibitor PFS <BANDAR Delgadillo - Last Filed: 09/18/23 20:02> [facility] Disclaimer: The information contained in this section may have been updated after the patient was seen, as this information can be updated by other users. Medical History (Updated 09/18/23 @ 20:01 by BANDAR Delgadillo) (HFpEF) heart failure with preserved ejection fraction Hypokalemia Hypomagnesemia CHF (congestive heart failure) HTN (hypertension) Biventricular heart failure Atypical angina Severe sleep apnea SOB (shortness of breath) on exertion Pulmonary hypertension BMI 45.0-49.9, adult Tobacco dependence Peripheral vascular disease Coronary artery disease Acute on chronic heart failure with preserved ejection fraction (HFpEF) Peripheral edema Morbid obesity Excessive daytime sleepiness Snoring Anxiety Emphysema, unspecified Schizophrenia DESMOND (obstructive sleep apnea) Edema Coronary stent patent Pulmonary arterial hypertension Dyspnea Carotid artery stenosis Claudication Hypertensive heart disease Hyperlipemia Coronary arteriosclerosis Carotid artery occlusion Abdominal aortic aneurysm Peripheral arterial occlusive disease Right bundle branch block Surgical History History of heart artery stent History of cardiac cath Hx of appendectomy Family History Other Cancer Diabetes Heart attack Hypertension Stroke Social History Smoking Status: Never smoker years smoked: 44 alcohol intake: never substance use type: denies use current occupational status: disabled Travel in the last 8 weeks: None household members: none housing: apartment <BANDAR Delgadillo - Last Filed: 09/18/23 20:02> ROS Obtained: Yes Systems reviewed as appropriate & no additional complaints except as documented Physical Exam <BANDAR Delgadillo - Last Filed: 09/18/23 20:02> General General appearance: alert and in no apparent distress Head Head exam: atraumatic and normal inspection Eye Eye exam: Present normal appearance, PERRL and EOMI ENT ENT exam: Present normal exam, normal oropharynx and mucous membranes moist Neck Neck exam: Present normal inspection and full ROM; Absent lymphadenopathy Chest Chest inspection: Present normal inspection and symmetric chest wall rise Respiratory Respiratory exam: Present normal lung sounds bilaterally; Absent respiratory distress, wheezes or accessory muscle use Cardiovascular Cardiovascular exam: Present regular rate, normal rhythm, normal heart sounds and +S2 Abdominal Exam Abdominal exam: Present soft (Obese) and normal bowel sounds; Absent tenderness, guarding or rebound Extremities Exam Extremities exam: Present normal inspection, full ROM and edema (He has 3+ bilateral pitting edema in his lower extremities.) Back Exam Back exam: Present normal inspection and full ROM; Absent tenderness Neurological Exam Neurological exam: Present alert, CN II-XII intact and other (Patient is interactive and somewhat occasionally abruptly dissociative but is easily redirectable. An ambulation standpoint patient could not stand without assistance of myself and he was unable to take an unassisted step forward.) Psychiatric Psychiatric exam: Present normal affect, normal mood, agitated, anxious and other (Patient is at his baseline mental functioning and is awake and interactive); Absent manic, homicidal ideation or suicidal ideation Skin Skin exam: Present warm, dry and normal color Medical Decision Making <BANDAR Delgadillo - Last Filed: 09/18/23 20:02> Medical Records Medical records reviewed: Yes I reviewed the patient's medical records. Ravi Inquiry Pt receiving controlled substance: No Vital Signs: 09/18/23 16:45 09/18/23 17:02 09/18/23 17:11 Temperature 98.3 F Temperature Source Oral Pulse Rate 81 82 Pulse Rate [Left] 78 Respiratory Rate 16 Blood Pressure 109/50 L 106/64 L Blood Pressure [Right Arm] 116/64 Blood Pressure Mean Blood Pressure Mean [Right Arm] 81 Blood Pressure Source [Right Arm] Automatic Cuff Blood Pressure Position [Right Arm] Sitting 02 Sat by Pulse Oximetry 96 95 96 Oxygen Delivery Method Room Air Room Air 09/18/23 20:26 09/18/23 20:31 09/18/23 20:46 Temperature Temperature Source Pulse Rate 65 63 Pulse Rate [Left] Respiratory Rate Blood Pressure 123/68 131/56 L 123/62 Blood Pressure [Right Arm] Blood Pressure Mean 65 Blood Pressure Mean [Right Arm] Blood Pressure Source [Right Arm] Blood Pressure Position [Right Arm] 02 Sat by Pulse Oximetry 94 L 95 Oxygen Delivery Method 09/18/23 21:01 09/18/23 21:29 Temperature 98.3 F Temperature Source Oral Pulse Rate 66 66 Pulse Rate [Left] Respiratory Rate 16 Blood Pressure 120/54 L 120/54 L Blood Pressure [Right Arm] Blood Pressure Mean Blood Pressure Mean [Right Arm] Blood Pressure Source [Right Arm] Blood Pressure Position [Right Arm] 02 Sat by Pulse Oximetry 93 L Oxygen Delivery Method Lab Data Lab results reviewed: Yes I reviewed the patient's lab results. Lab Results 09/18/23 18:30: WBC 10.7, RBC 3.78 L, Hgb 12.6 L, Hct 37.2 L, MCV 98.5 H, MCH 33.3 H, MCHC 33.8, RDW 16.1, Plt Count 214, MPV 8.3, Neut % (Auto) 72.4, Lymph % (Auto) 19.6, [place] % (Auto) 5.8, Eos % (Auto) 1.8, Baso % (Auto) 0.5, Neut # (Auto) 7.8, Lymph # (Auto) 2.1, [place] # (Auto) 0.6, Eos # (Auto) 0.2, Baso # (Auto) 0.1, PT 10.4, INR 0.96, Sodium 132 L, Potassium 3.5, Chloride 92 L, Carbon Dioxide 32 H, Anion Gap 11.5, BUN 31 H, Creatinine 1.10, Estimated Creat Clear 127, Estimated GFR 68, Est GFR ( Amer) 82, Glucose 167 H, Calcium 9.2, Magnesium 1.8, Total Bilirubin 0.3, AST 26, ALT 26, Alkaline Phosphatase 61, Ammonia 13, Troponin I < 0.01, NT-Pro-B Natriuret Pep 91.6, Total Protein 6.0 L, Albumin 3.8, Globulin 2.2, Albumin/Globulin Ratio 1.7, Salicylates < 1.0 L, Acetaminophen < 10 L 09/18/23 18:50: SARS-CoV-2 (PCR) Not detected, Influenza A Untype (PCR) Not detected, Influenza Type B (PCR) Not detected 09/18/23 18:30 09/18/23 18:30 Orders (Tests/Meds): ORDERS Category Date Time Status Acetaminophen Stat Lab 09/18/23 18:30 Completed Brain Natriuretic Peptide Stat Lab 09/18/23 18:30 Completed CBC w/Auto Diff [Complete Blood Count Auto Diff] Stat Lab 09/18/23 18:30 Completed CMP [Comprehensive Metabolic Panel] Stat Lab 09/18/23 18:30 Completed INR [Prothrombin Time INR] Stat Lab 09/18/23 18:30 Completed Magnesium Stat Lab 09/18/23 18:30 Completed NH3 level [Ammonia] Stat Lab 09/18/23 18:30 Completed Rapid PCR Covid and Flu A/B Stat Lab 09/18/23 18:50 Completed Salicylate Stat Lab 09/18/23 18:30 Completed Trop I [Troponin I] Stat Lab 09/18/23 18:30 Completed Medical Decision Narrative: In summary patient is a 63-year-old male who presents to the emergency department for evaluation of functional decline and an failure to thrive. Patient is afebrile but with a heart rate 50s via twelve-lead and a blood pressure of 106/64 upon arrival. Physical exam shows a well-nourished well-developed morbidly obese 63-year-old gentleman who was does not appear to be in acute distress. Physical exam is remarkable for an altered sensorium that shows the patient conversing with voices that are not visible or audible but is redirectable and answers some questions appropriately but drifts in and out of the conversation. Patient is interactive and has a fairly calm demeanor but can be verbally agitated. He lacks the ability to stand without assistance and lacks ability to walk once standing without significant assistance. Manger of his physical exam is unremarkable and nonfocal. Differential diagnosis includes functional decline, failure to thrive, toxic metabolic encephalopathy, stroke, or schizophrenia break. Initial workup will be conducted with hematologic labs plain film chest x-ray. Initial workup reviewed by me and his hematologic labs show sodium of 132, hemoglobin hematocrit of 12.6 and 37.2 respectively, and undetectable salicylate and acetaminophen levels. Upon repeat evaluation has had no worsening psychiatric symptoms.. Given this carly findings with the mother who feels that she can no longer safely care for the patient in her home and lacks the physical capacity to deliver the care the patient needs. I discussed patient management with hospital medicine at [facility] who felt that placement at our facility would be a problem as we do not have any psychiatric capacity to evaluate the patient. I then reached out via the transfer center and we spoke with Rick Wheat PA-C at [facility] who graciously except the patient on behalf of Dr. Horn. <Daphne Keller, DO - Last Filed: 09/18/23 23:53> Vital Signs: 09/18/23 16:45 09/18/23 17:02 09/18/23 17:11 Temperature 98.3 F Temperature Source Oral Pulse Rate 81 82 Pulse Rate [Left] 78 Respiratory Rate 16 Blood Pressure 109/50 L 106/64 L Blood Pressure [Right Arm] 116/64 Blood Pressure Mean Blood Pressure Mean [Right Arm] 81 Blood Pressure Source [Right Arm] Automatic Cuff Blood Pressure Position [Right Arm] Sitting 02 Sat by Pulse Oximetry 96 95 96 Oxygen Delivery Method Room Air Room Air 09/18/23 20:26 09/18/23 20:31 09/18/23 20:46 Temperature Temperature Source Pulse Rate 65 63 Pulse Rate [Left] Respiratory Rate Blood Pressure 123/68 131/56 L 123/62 Blood Pressure [Right Arm] Blood Pressure Mean 65 Blood Pressure Mean [Right Arm] Blood Pressure Source [Right Arm] Blood Pressure Position [Right Arm] 02 Sat by Pulse Oximetry 94 L 95 Oxygen Delivery Method 09/18/23 21:01 09/18/23 21:29 Temperature 98.3 F Temperature Source Oral Pulse Rate 66 66 Pulse Rate [Left] Respiratory Rate 16 Blood Pressure 120/54 L 120/54 L Blood Pressure [Right Arm] Blood Pressure Mean Blood Pressure Mean [Right Arm] Blood Pressure Source [Right Arm] Blood Pressure Position [Right Arm] 02 Sat by Pulse Oximetry 93 L Oxygen Delivery Method Lab Data Lab Results 09/18/23 18:30: WBC 10.7, RBC 3.78 L, Hgb 12.6 L, Hct 37.2 L, MCV 98.5 H, MCH 33.3 H, MCHC 33.8, RDW 16.1, Plt Count 214, MPV 8.3, Neut % (Auto) 72.4, Lymph % (Auto) 19.6, [place] % (Auto) 5.8, Eos % (Auto) 1.8, Baso % (Auto) 0.5, Neut # (Auto) 7.8, Lymph # (Auto) 2.1, [place] # (Auto) 0.6, Eos # (Auto) 0.2, Baso # (Auto) 0.1, PT 10.4, INR 0.96, Sodium 132 L, Potassium 3.5, Chloride 92 L, Carbon Dioxide 32 H, Anion Gap 11.5, BUN 31 H, Creatinine 1.10, Estimated Creat Clear 127, Estimated GFR 68, Est GFR ( Amer) 82, Glucose 167 H, Calcium 9.2, Magnesium 1.8, Total Bilirubin 0.3, AST 26, ALT 26, Alkaline Phosphatase 61, Ammonia 13, Troponin I < 0.01, NT-Pro-B Natriuret Pep 91.6, Total Protein 6.0 L, Albumin 3.8, Globulin 2.2, Albumin/Globulin Ratio 1.7, Salicylates < 1.0 L, Acetaminophen < 10 L 09/18/23 18:50: SARS-CoV-2 (PCR) Not detected, Influenza A Untype (PCR) Not detected, Influenza Type B (PCR) Not detected Orders (Tests/Meds): ORDERS Category Date Time Status Acetaminophen Stat Lab 09/18/23 18:30 Completed Brain Natriuretic Peptide Stat Lab 09/18/23 18:30 Completed CBC w/Auto Diff [Complete Blood Count Auto Diff] Stat Lab 09/18/23 18:30 Completed CMP [Comprehensive Metabolic Panel] Stat Lab 09/18/23 18:30 Completed INR [Prothrombin Time INR] Stat Lab 09/18/23 18:30 Completed Magnesium Stat Lab 09/18/23 18:30 Completed NH3 level [Ammonia] Stat Lab 09/18/23 18:30 Completed Rapid PCR Covid and Flu A/B Stat Lab 09/18/23 18:50 Completed Salicylate Stat Lab 09/18/23 18:30 Completed Trop I [Troponin I] Stat Lab 09/18/23 18:30 Completed ECG Data Tracing #1: I reviewed this ECG and interpreted as documented below: Sinus bradycardia with a ventricular rate of [address] changes concerning for ischemia. Normal intervals ECG initial impression date: 09/18/23 ECG initial impression time: 19:16 Medical Decision Narrative: In summary patient is a 63-year-old male who presents to the emergency department for evaluation of functional decline and an failure to thrive. Patient is afebrile but with a heart rate 50s via twelve-lead and a blood pressure of 106/64 upon arrival. Physical exam shows a well-nourished well-developed morbidly obese 63-year-old gentleman who was does not appear to be in acute distress. Physical exam is remarkable for an altered sensorium that shows the patient conversing with voices that are not visible or audible but is redirectable and answers some questions appropriately but drifts in and out of the conversation. Patient is interactive and has a fairly calm demeanor but can be verbally agitated. He lacks the ability to stand without assistance and lacks ability to walk once standing without significant assistance. Manger of his physical exam is unremarkable and nonfocal. Differential diagnosis includes functional decline, failure to thrive, toxic metabolic encephalopathy, stroke, or schizophrenia break. Initial workup will be conducted with hematologic labs plain film chest x-ray. Initial workup reviewed by me and his hematologic labs show sodium of 132, hemoglobin hematocrit of 12.6 and 37.2 respectively, and undetectable salicylate and acetaminophen levels. Upon repeat evaluation has had no worsening psychiatric symptoms.. Given this carly findings with the mother who feels that she can no longer safely care for the patient in her home and lacks the physical capacity to deliver the care the patient needs. I discussed patient management with hospital medicine at [facility] who felt that placement at our facility would be a problem as we do not have any psychiatric capacity to evaluate the patient. I then reached out via the transfer center and we spoke with Rick Wheat PA-C at [facility] who graciously except the patient on behalf of Dr. Horn. I was consulted by the JOSE, and we discussed the complexity of the problems being addressed. I approved the treatment and management plan for this patient's care in the emergency department, thus performing a substantive portion of the medical decision making. Daphne Keller, DO Critical Care <BANDAR Delgadillo - Last Filed: 09/18/23 20:02> Critical Care Time Critical Care Time: No
[2023-09-18 18:44] LABS: Basophils # 0.1 K/mm3 (0-0.2); Basophils % 0.5 % (0.1-2.0); Eosinophils # 0.2 K/mm3 (0.0-0.4); Eosinophils % 1.8 % (0.1-12.0); Hematocrit 37.2 % (42.0-52.0); Hemoglobin 12.6 g/dL (14.1-18.0); Lymphocytes # 2.1 K/mm3 (0.7-4.5); Lymphocytes % 19.6 % (10-50); Mean Corpuscular HGB Conc 33.8 g/dL (31.8-35.4); Mean Corpuscular Hemoglobin 33.3 pg (27.0-31.2); Mean Corpuscular Volume 98.5 fl (80-94); Mean Platelet Volume 8.3 fl (7.4-10.4); Monocytes # 0.6 K/mm3 (0.1-1.0); Monocytes % 5.8 % (1.7-9.3); Neutrophils # 7.8 K/mm3 (1.8-7.8); Neutrophils % 72.4 % (37.0-80.0); Platelet Count 214 K/mm3 (142-424); Red Blood Count 3.78 M/mm3 (4.60-6.20); Red Cell Distribution Width 16.1 % (11.5-17.5); White Blood Count 10.7 K/mm3 (4.8-10.8)
[2023-09-18 18:51] LABS: Ammonia 13 umol/L (9-30)
[2023-09-18 18:53] LABS: INR 0.96 (0.9-1.1); Prothrombin Time 10.4 seconds (10.1-12.5)
[2023-09-18 18:57] LABS: Alanine Aminotransferase 26 U/L (12-78); Albumin Level 3.8 g/dl (3.5-5.0); Albumin/Globulin Ratio 1.7 (1.1-1.8); Alkaline Phosphatase 61 U/L (38-126); Anion Gap 11.5 mEq/L (5-15); Aspartate Amino Transferase 26 U/L (17-59); Bilirubin,Total 0.3 mg/dl (0.2-1.3); Blood Urea Nitrogen 31 mg/dl (9-20); Calcium 9.2 mg/dl (8.4-10.2); Carbon Dioxide 32 mmol/L (22.0-30.0); Chloride 92 mmol/L (98-107); Creatinine Clearance Estimated 127 mL/min (50-200); Estimated Glomerular Filt Rate 68 ml/min (>60); GFR (African American) 82 ML/MIN (>60); Globulin 2.2 g/dL (1.3-3.2); Glucose 167 mg/dl (74-100); Potassium 3.5 mmoL/L (3.5-5.1); Sodium 132 mmol/L (136-145)
[2023-09-18 18:58] LABS: Magnesium 1.8 mg/dl (1.6-2.3)
[2023-09-18 18:59] LABS: Coronavirus 19, PCR Not Detected (NotDetected); Influenza A, PCR Not Detected (NotDetected); Influenza B, PCR Not Detected (NotDetected)
[2023-09-18 19:00] LABS: Salicylate < 1.0 mg/dL (2.0-20.0)
[2023-09-18 19:01] LABS: Acetaminophen < 10 ug/ml (10-30)
[2023-09-18 19:07] LABS: NT Pro Brain Natriuretic Pep. 91.6 pg/mL (0-125)
[2023-09-18 19:11] LABS: Troponin I < 0.01 ng/ml (0.00-0.034)
--- NOTE | 2023-09-18 19:14 | ECG_ITS ---
APPROVED REPORT Exam: Resting ECG HR:59 bpm ECG Measurements Heart Rate 59 AXES FL 193 P 32 QRSd 99 QRS 39 QT 401 T 50 QTc 401 Conclusion SINUS BRADYCARDIA Electronically signed by : STEVE COLLINS, 09/19/2023 00:15:16
== END 2023-09-18 21:45 | disposition other institution (70) ==
PROVIDERS: Physician Assistant; Emergency Provider Emergency Medicine; PCP Nurse Practitioner Family
DX: E87.1 Hypo-osmolality and hyponatremia (principal); R00.1 Bradycardia, unspecified; R62.7 Adult failure to thrive; R53.81 Other malaise; F20.9 Schizophrenia, unspecified; I11.0 Hypertensive heart disease with heart failure; I50.30 Unspecified diastolic (congestive) heart failure; E78.5 Hyperlipidemia, unspecified; I65.29 Occlusion and stenosis of unspecified carotid artery; I25.10 Atherosclerotic heart disease of native coronary artery without angina pectoris; E66.9 Obesity, unspecified
CPT/HCPCS: 80053; 80329; 82140; 83735; 83880; 84484; 85025; 85610; 87636; 93005; 99285

== ENCOUNTER 2024-11-27 10:31 | Outpatient (CLI) | payer MEDICARE, MEDICAID, SELFPAY ==
--- NOTE | 2024-11-27 10:35 | CT_ITS ---
FINAL REPORT TECHNIQUE: Thin section axial images were obtained through the abdomen and pelvis after contrast injection per CT angiogram protocol. Multiplanar reconstruction images were obtained from the axial data. This exam was performed with techniques to keep radiation dose as low as reasonably achievable. This includes automated exposure control, adjustment of the MA and KVP, and iterative reconstruction technique. CLINICAL HISTORY: ABD AORTIC ANEURYSM COMPARISON: 04/10/2023 FINDINGS: CTA: There is an endoluminal graft in the abdominal aorta, which is patent. The la posta aneurysm measures 41 mm in diameter, stable since the prior exam. The iliac components of the stent are patent. The celiac axis and superior mesenteric artery are patent without stenosis. The inferior mesenteric artery is likely occluded at the origin. The renal arteries are patent. The common iliac arteries and visualized portions of the internal and external iliac arteries are patent. No significant stenosis. NONVASCULAR: There is a new nodular airspace opacity in the left lower lobe, that may represent pneumonia. The gallbladder is absent. There is diffuse fatty infiltration of the liver. A left adrenal nodule is stable when compared to the prior exam. The bilateral renal lesions seen on the previous exam are similar to the prior. The appendix is not visualized. A large amount of stool is present in the colon. No lymphadenopathy or free fluid. No acute osseous abnormality. Soft tissue nodules are noted in the buttocks, likely granulomas from prior injection sites. IMPRESSION: The la posta aortic aneurysm measures 41 mm in diameter, stable when compared to the prior exam of 2022. New nodular airspace opacity in the left lower lobe, that may represent pneumonia. Would recommend a follow-up CT of the chest in 2 to 3 months for further evaluation. Reviewed, Interpreted and Dictated by Dominique Childs MD Transcribed by Yaneth Tesfaye Authenticated and [facility]
[2024-11-27 11:06] LABS: Blood Urea Nitrogen 20 mg/dl (9-20); Estimated Glomerular Filt Rate 75 ml/min (>60); GFR (African American) 91 ML/MIN (>60)
[2024-11-27] MEDS: SODIUM CHLORIDE 0.9% 10ML SYR (RAD ONLY) 10 ML IV (11:37)
[2024-11-27] MEDS: IOPAMIDOL-370 (76%);100ML BOTTLE 80 ML IV (11:37)
[2024-11-27] MEDS: 0.9 % SODIUM CHLORIDE 50 ML VIAL IV (11:37)
== END 2024-11-27 23:59 | disposition home or self-care (01) ==
LOC: RAD 10:32
PROVIDERS: PCP Nurse Practitioner Family; Visit Provider Student in an Organized Health Care Education/Training Program
DX: I71.40 Abdominal aortic aneurysm, without rupture, unspecified (principal)
CPT/HCPCS: 36415; 74174; 82565; 84520; Q9967